=== PATIENT | male | born 1960 | race Two or more races ===

== ENCOUNTER → 2024-09-03 | Outpatient (CLI) | payer MEDICARE, SELFPAY ==
[2024-09-03 08:44] LABS: Alanine Aminotransferase 16 U/L (10-49); Albumin, Serum 4.3 gm/dL (3.4-4.8); Albumin/Globulin Ratio 1.5 (1.2-2.2); Alkaline Phosphatase 89 U/L (46-116); Anion Gap 10 (7-16); Aspartate Amino Transferase 19 U/L (0-34); BUN/Creatinine Ratio 18 Ratio (12-20); Bilirubin,Total 1.3 mg/dL (0.3-1.2); Blood Urea Nitrogen 14 mg/dL (9-23); Calcium 9.7 mg/dL (8.3-10.6); Calcium (Corrected) 9.7 mg/dL (8.5-10.1); Carbon Dioxide 29.3 mMol/L (20.0-31.0); Cardiac Risk Estimate 5.1 RATIO (4.0-6.7); Chloride 109 mMol/L (98-107); Cholesterol 164 mg/dL (132-200); Creatinine (Component) 0.8 mg/dL (0.6-1.3); Globulin 2.8 gm/dL (2.3-3.5); Glucose 107 mg/dL (74-106); HDL Cholesterol 32 mg/dL (40-60); LDL Cholesterol,Calculated 101 mg/dL (0-130); Osmolality,Calculated 294 (275-295); Potassium 4.1 mMol/L (3.4-5.1); Sodium 148 mMol/L (136-145); Thyroid Stimulating Hormone 1.42 uIU/mL (0.55-4.78); Total Protein 7.1 gm/dL (5.7-8.2); Triglycerides 154 mg/dL (30-150); eGFR > 60 See Note
[2024-09-03 08:51] LABS: T4 (Thyroxine) 8.4 mcg/dL (4.5-10.9)
[2024-09-06 06:48] LABS: T3,Total* 66 ng/dL (76-181)
== END | disposition home or self-care (01) ==
PROVIDERS: PCP Family Medicine; Referring Provider Family Medicine; Visit Provider Family Medicine
DX: E03.9 Hypothyroidism, unspecified (principal); I10 Essential (primary) hypertension
CPT/HCPCS: 36415; 80053; 80061; 84436; 84443; 84480

== ENCOUNTER → 2024-11-16 | Outpatient (CLI) | payer MEDICARE, MEDICAID, SELFPAY ==
[2024-11-16 09:58] LABS: Thyroid Stimulating Hormone 1.08 uIU/mL (0.55-4.78)
[2024-11-16 10:01] LABS: T4 (Thyroxine) 7.4 mcg/dL (4.5-10.9)
[2024-11-21 06:53] LABS: T3,Total* 69 ng/dL (76-181)
== END | disposition home or self-care (01) ==
LOC: COPL 08:10
PROVIDERS: PCP Family Medicine; Referring Provider Family Medicine; Visit Provider Family Medicine
DX: E03.9 Hypothyroidism, unspecified (principal)
CPT/HCPCS: 36415; 84436; 84443; 84480

== ENCOUNTER 2024-12-24 08:04 | Inpatient (IN) | payer MEDICARE, MEDICAID, SELFPAY ==
[2024-12-24] VITALS (8 sets, daily range): BP systolic 80–165; BP diastolic 50–108; PULSE 47–98; RESP 16–24; TEMP 36.8–37.2; O2SAT 94–100; BMI 49.5; BMI 47.9
--- NOTE | 2024-12-24 08:05 | PC.NURSE ---
Pt. here from home to room 1, pt. states he has chest pain to left upper chest /, pt. states the pain started at 0700 this morning, pt. states he was just in [facility] and admitted 2 days ago, pt. states he was also in [facility] 2 weeks ago. Pt. states he has A-fib, prostate CA and HTN. Pt. states he is receiving treatment for the prostate CA. Pt. is very pale, pt. lips are dry and pt. is very sleepy.
--- NOTE | 2024-12-24 08:10 | EKG_ITS ---
[facility] Test Date: 2024-12-24 Pat Name: SUSHILA COLE Department: Room: - Gender: Male Manager Secondary: : 1960 Requested By: Fabiana Mast Order Number: [id number] Reading MD: Fabiana Mast Measurements Intervals [place] Rate: 89 P: OR: QRS: 17 QRSD: 87 T: 21 QT: 384 QTc: 467 Interpretive Statements ATRIAL FIBRILLATION ABNORMAL RHYTHM ECG No previous ECG available for comparison /store/S0/[id number].pdf
--- NOTE | 2024-12-24 08:11 | EDNOTE_ITS ---
ED Chest Pain RME/HPI General Chief Complaint: Chest Pain Stated Complaint: bradycardia, weakness Time Seen by Provider: 12/24/24 08:09 Source: patient and EMS Arrival date/time: 12/24/24 08:04 Mode of arrival: EMS Limitations: no limitations and language barrier RME / HPI RME / HPI narrative: Patient is a 64-year-old male with medical history notable for hypothyroidism, A-fib, prostate cancer actively receiving chemotherapy that send Emergency Department with concerns for shortness of breath, chest pain and feeling very weak. Per the patient he has been at evaluated at outside hospitals over the last couple weeks for chest pain. This morning he called his son as well as 911 because he was also having a hard time breathing. When EMS arrived patient's he art rate was in the 40s blood pressure was systolic in the 80s. Patient slow to respond and very weak. Patient received 0.5 mg of atropine as well as 200 cc of fluid which resulted in patient's heart rate improving to the 80s and blood pressure systolic in the 100s. Patient denies any cough runny nose hemoptysis hematemesis melena hematochezia dysuria hematuria recent travel or sick contacts. No drugs no alcohol no smoking. No allergies to medications. Patient has never had a heart attack, does not know nothing with his residential real estate sales manager at this time. Related Data Home Medications ?Medication ?Instructions ?Recorded ?Confirmed Levothyroxine * (SYNTHROID *) 50 mcg PO QDAY PRN HYPOT HYROID #30 12/24/13 tabs Allergies Allergy/AdvReac Type Severity Reaction Status Date / Time No Known Allergies Allergy Mild NKA Uncoded 12/24/24 08:11 ED Exam General Limitations: Present no limitations and language barrier General appearance: Present alert and other (Weak, slow to respond, chronically ill-appearing with acute distress) Head Head exam: Present atraumatic and normocephalic Eye Eye exam: Present normal appearance, PERRL and EOMI; Absent scleral icterus ENT ENT exam: Present normal exam, normal oropharynx and mucous membranes dry Neck Neck exam: Present normal inspection and trachea midline Chest Chest inspection: Present normal inspection and symmetric chest wall rise Respiratory Respiratory exam: Present normal lung sounds bilaterally and respiratory distress; Absent wheezes or stridor Cardiovascular Cardiovascular exam: Present regular rate Abdominal Exam Abdominal exam: Present soft; Absent distention, tenderness, guarding, rebound or rigidity Extremities Exam Extremities exam: Present normal inspection; Absent tenderness Back Exam Back exam: Present normal inspection Neurological Exam Neurological exam: Present alert, oriented X3 and CN II-XII intact; Absent motor sensory deficit Psychiatric Psychiatric exam: Present normal affect Skin Skin exam: Present warm, dry and pallor Course Quality Measures none Orders Category Date Time Status Bedside Blood Glucose NOW Care 12/24/24 08:28 Active Bedside COVID-19 Antigen Test NOW Care 12/24/24 08:10 Active Bedside Influenza A&B Antigen Test NOW Care 12/24/24 08:[address] Screening NOW Care 12/24/24 08:[address] Screening NOW Care 12/24/24 08:25 Active Spring Fitter Helper Q4H START 00 Care 12/24/24 08:28 Active EKG (ED ONLY) *Do not use* NOW Care 12/24/24 08:10 Completed Insert IV NOW Care 12/24/24 08:28 Active Occult Blood,Stool (Nursing) NOW Care 12/24/24 09:50 Active Strict Intake and Output Routine Care 12/24/24 08:28 Ordered Consult to Gastroenterology Stat Cons 12/24/24 10:[address] angio chest abdomen pelvis Stat Exams 12/24/24 08:[address] head/brain wo con Stat Exams 12/24/24 08:22 Completed EKG (ED Only) Stat Exams 12/24/24 08:10 Draft XR chest 1V SEPSIS PROTOCOL Stat Exams 12/24/24 08:28 Completed Acetaminophen Stat Lab 12/24/24 08:30 Completed Ammonia Stat Lab 12/24/24 08:30 Completed BNP [B-Type Natriuretic Peptide] Stat Lab 12/24/24 08:13 Completed Bilirubin,Direct Stat Lab 12/24/24 08:30 Completed Blood Culture (Lab) Stat Lab 12/24/24 09:38 Received CBC Stat Lab 12/24/24 08:13 Completed CMP [Comprehensive Metabolic Panel] Stat Lab 12/24/24 08:13 Completed Lactate (Lactic Acid) Stat Lab 12/24/24 08:30 Completed Partial Thromboplastin Time Stat Lab 12/24/24 08:13 Completed Procalcitonin Stat Lab 12/24/24 08:30 Completed Prothrombin Time with INR Stat Lab 12/24/24 08:13 Completed Salicylate Stat Lab 12/24/24 08:30 Completed T4 (Thyroxine) Stat Lab 12/24/24 08:30 Completed TSH [Thyroid Stimulating Hormone] Stat Lab 12/24/24 08:30 Completed Troponin I Stat Lab 12/24/24 08:13 Completed Type and Screen Stat Lab 12/24/24 08:30 Completed UA, C/S IF [Urinalysis, C/S if Indicated] Stat Lab 12/24/24 08:10 Ordered VBG [Venous Blood Gas] Stat Lab 12/24/24 08:30 Completed Azithromycin Inj [Zithromax Inj] 500 mg Med 12/24/24 08:28 Discontinued Sodium Chloride 0.9% 250 ml [Ns] 250 ml IV STAT Norepinephrine/D5W 8mg/250ml [Levophed in D5W 8mg/250ml Med 12/24/24 08:23 Active ] 8 mg in 250 ml IV 0.05 mcg/kg/min Pantoprazole Inj [Protonix Inj] Med 12/24/24 10:38 Discontinued 80 mg IVP X1 ONE Pantoprazole/Ns 80Mg IV Premix [Protonix/NS 80mg IV Med 12/24/24 10:39 Active Premix] 80 mg in 100 ml IV X1 Pantoprazole/Ns 80Mg IV Premix [Protonix/NS 80mg IV Med 12/24/24 10:39 Discontinued Premix] 80 mg in 100 ml IV X1 Ringers Lactated 1000 ml [Lactated Ringers] 1,000 ml Med 12/24/24 08:34 Discontinued IV 999 mls/hr Ringers Lactated 500 ml [Lactated Ringers] 500 ml Med 12/24/24 08:23 Discontinued IV 500 mls/hr cefTRIAXone/D5w 1gm IV premix [Rocephin/D5w 1gm IV Med 12/24/24 08:28 Discontinued premix] 1 gm in 50 ml IV STAT Oxygen Delivery NOW RT 12/24/24 08:28 Active Vital Signs Vital signs: Vital Signs Temperature 98.2 F 12/24/24 08:05 Pulse Rate 64 12/24/24 08:05 Respiratory Rate 16 12/24/24 08:05 Blood Pressure 97/50 L 12/24/24 08:05 Pulse Oximetry (%) 97 12/24/24 08:05 Oxygen Delivery Method Oxy Mask 12/24/24 08:05 Oxygen Flow Rate 12 12/24/24 08:05 Chest Pain MDM Narrative MDM Narrative:: Patient is a 64-year-old male is in the emergency department with concerns for weakness, chest pain shortness of breath and hypotension. Vital signs and exam as listed. Concern for pulmonary embolus, ACS, arrhythmia, metabolic derangement, among others. Patient was placed in resuscitation room, IV access obtained, placed on the cardiac specialist. Pacer pads placed. Patient heart rate is in the 60s, systolic blood pressure greater than 100 at this time. Ordered labs EKG chest x-ray as well as CT angio of the chest. Given patient's history of A-fib patient may be on beta-blockers at home, at this time patient does not know his medications however he does state that he took his home medications this morning. Patient may be septic and if he took his beta-christian which may be the reason why he is not tachycardic despite being hypotensive. Ordered sepsis order set, and judicious fluid resuscitation. Per the patient's son his medications include metoprolol, Eliquis, Synthroid. Reviewed patient's outside records, he was recently hospitalized at for similar presentation. His symptoms have been present on and off for the last 3 weeks. Unclear he had an echocardiogram that showed an ejection fraction of 73%. Had a nuclear medicine stress test that did not show any acute abnormalities. Had a CT angio of the chest that showed pneumonia but no PE at the time. Cocci studies were negative. Patient was evaluated by residential real estate sales manager Dr. Russell. Diagnosed with atrial fibrillation started on metoprolol and Eliquis. Patient is pending an appointment to be seen by him in clinic in the upcoming week. At 1 point patient was evaluated in [place] and was told that he might need a cardiac device. 9:38a Following a liter of fluid resuscitation, patient responding questions quicker, appears better, continues to have the dusky skin color, and is weak however denies any chest pain or abdominal pain at this time. Continues to be hypoxic requiring supplemental oxygen. Labs without leukocytosis and no left shift. Patient hemoglobin is 9.5, per review of outside records his hemoglobin there was 11.7 upon discharge on 20 December. Given patient is on Eliquis, and appears pale and was hypotensive concern that patient may have a bleed. Will perform occult blood testing. pH 7.4, pCO2 46. No acute electrolyte abnormalities. Lactic acid normal. LFTs normal. INR normal. PT 12.4 seconds. Troponin not elevated. Procalcitonin not elevated. Ammonia level salicylate and Tylenol level normal. CT brain unremarkable. CT chest abdomen pelvis with mild aneurysmal dilatation of the ascending aorta at 4.5 cm no dissection. No evidence of pulmonary emboli. Patient has atelectasis versus pneumonia at the lung bases. Concern for liver disease as well. Patient also with bladder wall thickening. Urinalysis however does not show any evidence of urinary tract infection. I did perform a Hemoccult test at bedside was positive for blood. Consulted Dr. Hutton, requests patient be NPO. Will evaluate patient. concern the patient is having a GI bleed. I ordered Protonix bolus and drip. Patient without any history of alcohol use do not suspect esophageal varices at this time. I discussed with patient's residential real estate sales manager Dr Russell, in agreement with treatment plan. Discussed case with hospitalist service, kindly accepted patient for admission. Updated patient and his son, both in agreement with treatment plan. Patient data External records reviewed:: [facility] previous records and EMS form Clinical information provided by:: patient, EMS and family Social determinants that could affect healthcare access:: none (Language, fitness consultant used) Patient has the following chronic illnesses:: See MDM How is presenting disease/condition affected by chronic disease/condition?: exacerbated by Evaluation data The following diagnostics were reviewed and interpreted by me:: lab results, radiology exam(s) and EKG tracing(s) Lab and/or radiology exams considered but not ordered:: None Interpretation Summary: see mdm Medications / Prescriptions Medications or Prescriptions considered but not ordered:: None Medication administrations:: Medication Administration History Norepinephrine/Dextrose (Levophed In D5w 8mg/250ml) 8 mg in 250 mls @ 11.156 mls/hr IV .[id number] PRN; Protocol PRN Reason: PER PROTOCOL Stop: 01/23/25 08:22 Pantoprazole Sodium (Protonix/Ns 80mg Iv Premix) 80 mg in 100 mls @ 10 mls/hr IV X1 ONE Stop: 12/24/24 20:38 Discontinued Medications Lactated Ringer's (Lactated Ringers) 500 mls @ 500 mls/hr IV .Q1H ONE Stop: 12/24/24 09:22 Last Admin: 12/24/24 09:09 Dose: Not Given Documented By: ED Non-Admin Reason: Cancelled by Provider Ceftriaxone Sodium/Dextrose (Rocephin/D5w 1gm Iv Premix) 1 gm in 50 mls @ 100 mls/hr IV STAT STA Stop: 12/24/24 08:57 Last Infusion: 12/24/24 09:42 Dose: Infused Documented By: Admin: 12/24/24 09:12 Dose: 100 mls/hr Documented By: ED Azithromycin 500 mg/ Sodium (Chloride) 250 mls @ 250 mls/hr IV STAT STA Stop: 12/24/24 09:27 Lactated Ringer's (Lactated Ringers) 1,000 mls @ 999 mls/hr IV .Q1H1M ONE Stop: 12/24/24 09:34 Last Admin: 12/24/24 09:04 Dose: 999 mls/hr Documented By: ED Pantoprazole Sodium (Protonix/Ns 80mg Iv Premix) 80 mg in 100 mls @ 400 mls/hr IV X1 ONE Stop: 12/24/24 10:53 Pantoprazole Sodium (Pantoprazole Inj 40 Mg Vial) 80 mg IVP X1 ONE Stop: 12/24/24 10:39 See above Consultations Consultation(s) initiated? (list below): Yes Consultation #1 (Physician, Specialty, Details): See MDM Diagnosis Chest Pain Differential Diagnosis: other Most likely diagnosis given after review of the tests above:: GI bleed Admission Indicated Admission indicated?: indicated Admission Request Was there a request for admission?: Yes Admission Attestation Admission request attestation: Discussed case with Hospitalist service regarding admission. Discussed patients ED course, exam findings, labs, and radiology results. The Hospitalist [agrees,declines] to accept the patient for admission. Disposition Plan Disposition Plan: Admit Critical Care Time Critical Care Time Critical Care Time: Yes Total Critical Care Time (min.): 45 Attestation: ?I spent 45 minutes of critical care time with this patient not including reportable procedures. There was an acute impairment of an organ system with a high probability of imminent or life threatening deterioration in the patient's condition. Interventions and changes required in the course of therapy are located in the chart. Time involved was spent in direct patient care, reviewing ancillary data, old records, consulting with decision makers, EMS, other doctors, giving orders and documenting. Discharge Plan Plan Patient Disposition: Admit Acute Care w/in Hospital Prescriptions/Referrals Prescriptions/Med Rec: No Action Levothyroxine * (SYNTHROID *) 50 MCG tablet 50 mcg PO QDAY PRN (Reason: HYPOTHYROID) Qty: 30 Referrals: Alexsander Echavarria MD [Primary Care Provider, Family Practice] - In 1 week Problem List Clinical Impression: GI (gastrointestinal bleed), Acute hypotension, Bradycardia, Atrial fibrillation, Aortic aneurysm Patient/Caregiver Discharge Instructions Print Language: [place] Stand Alone Forms: [facility] Award Info., Patient Portal Info Letter
[2024-12-24 08:21] LABS: Basophils # (Auto) 0.0 Thou/mm3 (0.0-0.2); Basophils % (Auto) 0 % (0-2.5); Eosinophils # (Auto) 0.2 Thou/mm3 (0.0-0.5); Eosinophils % (Auto) 3 % (0-10); Hematocrit 28.8 % (41.0-53.0); Hemoglobin 9.5 g/dL (13.5-16.0); Immature Granulocytes Auto 0.02 Thou/mm3 (0.00-0.00); Lymphocytes # (Auto) 1.0 Thou/mm3 (1.0-4.8); Lymphocytes % (Auto) 20 % (10-50); Mean Corpuscular HGB Conc 33.0 g/dl (31.0-37.0); Mean Corpuscular Hemoglobin 29.7 pg (25.0-35.0); Mean Corpuscular Volume 90 fL (80-100); Monocytes # (Auto) 0.4 Thou/mm3 (0.0-0.8); Monocytes % (Auto) 8 % (0-12); Neutrophils # (Auto) 3.5 Thou/mm3 (1.8-7.7); Neutrophils % (Auto) 69 % (37-80); Nucleated Red Blood Cell # 0.00 Thou/mm3 (0.00-0.00); Nucleated Red Blood Cell % 0 /100 WBC (0); Platelet Count 385 Thou/mm3 (140-440); RDW Standard Deviation 43.4 fL (35.1-43.9); Red Blood Count 3.20 Miln/mm3 (4.50-5.90); White Blood Count 5.0 Thou/mm3 (3.8-10.6)
--- NOTE | 2024-12-24 08:22 | XR_ITS ---
Examination: CT brain head without contrast. 2-D sagittal coronal reconstructions Date and time of exam:December 24, 2024 0841 hours, comparison August 19, 2009 INDICATIONS: Onset altered mental status today CTDI: vol (mGy):60.2 DLP: (mGycm):1282 Technique: Multiple CT axial sections of the brain have been obtained, 5 mm slice thickness. Contrast has not been administered. 2-D sagittal, coronal reconstructions have been obtained Low dose protocols were performed. One or more of the following dose reduction techniques were used; automated exposure control, adjustment of the mA and/or KV according to patient size, use of iterative reconstruction technique. Findings: No significant ventricular enlargement. Intra-axial or extra-axial hemorrhage density is not seen. No mass effect or midline shift Basal cisterns are not remarkable. Fourth ventricle is midline. Cranial vault intact. Significant chronic ethmoid sinusitis Impression: Negative for acute hemorrhage, mass effect or midline shift Advise clinical correlation follow-up accordingly
--- NOTE | 2024-12-24 08:24 | XR_ITS ---
Examination: CTA chest, with intravenous contrast. CTA abdomen, with intravenous contrast. CTA pelvis, with intravenous contrast. 2-D sagittal and coronal reconstructions. 3-D reconstructions. Date and time of exam: December 24, 2024, 0845 hours INDICATIONS: Onset chest and abdominal pain today CTDI vol (mgy) 31.3 DLP (MGycm) 1328 Technique: Multiple CTA images, 2.0 mm slice thickness, obtained chest, abdomen, pelvis, with the high-resolution 64 slice scanner. 100 cc Isovue-370 is administered intravenously. Sagittal and coronal 2-D reconstructions are obtained. 3-D reconstructions, angiographic images are obtained. 3-D postprocessing, including vascular maximum intensity projections. Low dose protocols were performed. One or more of the following dose reduction techniques were used; automated exposure control, adjustment of the mA and/or KV according to patient size, use of iterative reconstruction technique. Findings: Aneurysmal dilatation ascending thoracic aorta, AP dimension 4.5 cm No thoracic aortic dissection Main pulmonary artery segment 30 mm No pulmonary artery filling defects Mild enlargement cardiac contour Minimal right hilar adenopathy Atelectasis versus early pneumonia at the lung bases Liver is mildly irregular in contour, no focal liver lesions No gallstones Spleen is not enlarged No pancreatic or adrenal mass No renal or ureteral calculi, small benign left renal cyst Abdominal aortic calcification no aneurysmal dilatation or dissection Normal appendix Moderate stool in the colon Tiny fat-containing umbilical hernia No diverticulitis Normal seminal vesicles Transverse prostate dimension 3.8 cm Contracted urinary bladder with urinary bladder wall thickening up to 7 mm Prominent osteopenia IMPRESSION: Mild aneurysmal dilatation ascending thoracic aorta, AP dimension 4.5 cm, no dissection Negative for pulmonary artery emboli. Atelectasis versus mild pneumonia at the lung bases. Suspect primary hepatocellular disease. Normal appendix. No abdominal aortic aneurysm dilatation or dissection. Urinary bladder wall thickening up to 7 mm, differential would include cystitis
--- NOTE | 2024-12-24 08:28 | XR_ITS ---
Examination: AP chest single view TECHNIQUE: Portable AP sitting chest single view Date and time: December 24, 2024 0904 hours, comparison 12/23/2013 INDICATIONS: Sepsis protocol. FINDINGS: Accentuation basilar bronchovascular markings. No lobar pneumonia. Normal heart size IMPRESSION: Basilar bronchitis pattern
[2024-12-24 08:38] LABS: Base Excess, Venous 4 (-3-3); O2 Saturation, Venous 68 % (96-97); PCO2, Venous 46 mmHg (36-56); PO2, Venous 36 mmHg (15-58); pH, Venous 7.41 (7.33-7.66)
[2024-12-24 08:39] LABS: Lactate (Lactic Acid) 1.9 mMol/L (0.4-2.0)
[2024-12-24 08:42] LABS: B-Type Natriuretic Peptide 99 pg/mL (0-100)
[2024-12-24 08:43] LABS: Alanine Aminotransferase 15 U/L (10-49); Albumin, Serum 3.8 gm/dL (3.4-4.8); Albumin/Globulin Ratio 1.2 (1.2-2.2); Alkaline Phosphatase 84 U/L (46-116); Anion Gap 8 (7-16); Aspartate Amino Transferase 23 U/L (0-34); BUN/Creatinine Ratio 13 Ratio (12-20); Bilirubin,Total 0.7 mg/dL (0.3-1.2); Blood Urea Nitrogen 10 mg/dL (9-23); Calcium 10.0 mg/dL (8.3-10.6); Calcium (Corrected) 10.2 mg/dL (8.5-10.1); Carbon Dioxide 28.5 mMol/L (20.0-31.0); Chloride 107 mMol/L (98-107); Creatinine (Component) 0.8 mg/dL (0.6-1.3); Estimated Creatinine Clearance 103.2 mL/min (>60); Globulin 3.1 gm/dL (2.3-3.5); Glucose 111 mg/dL (74-106); Osmolality,Calculated 284 (275-295); Potassium 3.8 mMol/L (3.4-5.1); Sodium 143 mMol/L (136-145); Total Protein 6.9 gm/dL (5.7-8.2); Troponin I < 0.002 ng/mL (0.0-0.045); eGFR > 60 See Note
[2024-12-24 08:50] LABS: INR 1.1 (0.9-1.3); Partial Thromboplastin Time 26.3 Seconds (22.0-36.0); Prothrombin Time 12.4 Seconds (9.0-12.2)
[2024-12-24 08:59] LABS: Ammonia 23 uMol/L (11-32)
[2024-12-24 09:02] LABS: T4 (Thyroxine) 9.9 mcg/dL (4.5-10.9)
[2024-12-24] MEDS: RINGERS LACTATED 1000 ML 1,000 ML 999 ML IV (09:04)
[2024-12-24 09:11] LABS: Acetaminophen < 2.0 mcg/mL (10.0-20.0); Bilirubin,Direct 0.2 mg/dL (0.0-0.3); Procalcitonin 0.06 ng/ml (0.0-0.49); Salicylate < 3.0 mg/dL; Thyroid Stimulating Hormone 0.52 uIU/mL (0.55-4.78)
[2024-12-24] MEDS: cefTRIAXone/D5w 1gm IV premix 1 GM/50 ML BAG IV (09:12)
--- NOTE | 2024-12-24 09:20 | PC.NURSE ---
Dr. Luong is bedside talking with son and pt., pt. states he was in [place] a month ago, son states pt. fainted in [place] and was taken to the Doctor there. Per son pt. was told in [place] he needed a pace maker, son states that they flew pt. to [place] to [facility] for a pacemaker. Son states per [facility] pt. had Afib and PNA and didn't need a pacemaker.
--- NOTE | 2024-12-24 09:27 | PC.NURSE ---
Son states pt. was just started on blood thinners at [facility].
--- NOTE | 2024-12-24 09:58 | PC.NURSE ---
Dr. Luong is bedside, tested pt. for occult blood, pt. tolerated well. Dr. Luong states pt. is positive.
[2024-12-24 11:06] LABS: Collection Type, Urine Clean Catch; Squamous Epithelial Cell,Urine 0 /hpf (0-5)
[2024-12-24] MEDS: PANTOPRAZOLE/NS 80MG IV PREMIX 80 MG/100 ML BAG 400 MG IV (11:17)
[2024-12-24 11:24] LABS: Bacteria,Urine Rare; Bilirubin,Urine Negative (Negative); Blood,Urine Negative (Negative); Clarity,Urine Clear (Clear/Hazy); Color,Urine Colorless (Lt Yel-Yel); Culture Indicated,Urine Not Indicated; Glucose, Urine Negative (Negative); Ketones,Urine Negative (Negative); Leukocyte Esterase,Urine Negative (Negative); Nitrite,Urine Negative (Negative); PH,Urine 7.5 (5.0-7.0); Protein,Urine Negative (Neg - Trace); RBC,Urine 2 /hpf (0-3); Specific Gravity,Urine 1.032 (1.001-1.035); Urobilinogen,Urine Negative mg/dL (0.0-1.0); WBC,Urine 1 /hpf (0-5)
[2024-12-24] MEDS: PANTOPRAZOLE/NS 80MG IV PREMIX 80 MG/100 ML BAG 10 MG IV (11:35)
--- NOTE | 2024-12-24 15:52 | PD.RESHP ---
Documentation for date of: 12/24/24 [facility] History of Present Illness Chief complaint: Chest pain & SOB History of present illness: This patient is a 64-year-old Afghan speaking male with a past medical history of hypothyroidism, hypertension, A-fib, and prostate cancer on chemotherapy, who presents to [facility] ED on 12/24 for concerns of shortness of breath with chest pain and generalized weakness. The patient was admitted for management of GI bleed. The patient stated that earlier this morning, he had sudden onset chest pain and felt generalized weakness, resulting in the patient almost collapsing without loss of consciousness. The patient stated that these episodes started when the patient went to [place] about a month ago. In [place], the patient was noted to become very pale and weak very suddenly. According to the patient's family, the patient went to see a chief of staff doctor in [place], who recommended placement of a pacemaker at the time. However, due to lack of insurance in [place], the patient opted to pursue further evaluation in the . The patient was evaluated by his chief of staff doctor, Dr. Russell, who did not believe that the patient needed a pacemaker at the time. The patient had an echocardiogram done recently that showed ejection fraction of 73% as well as a nuclear medicine stress test that did not show any acute abnormalities. Additionally, CTA of the chest was negative for PE at the time. The patient was however diagnosed with atrial fibrillation and started on metoprolol and Eliquis by his chief of staff doctor. However, the patient continued to have these episodes of weakness with becoming pale and seemingly almost collapsing. In addition, these episodes would become worse as the patient noted that he started to have chest pain and shortness of breath about 3 weeks ago. These episodes would come and go, and the chest pain was noted to be a sharp stabbing sensation in the center of his chest that does not radiate and does not change on palpation of the chest. On 12/20, the patient had another one of these episodes, and sought help at [facility]. The patient and his family member at bedside stated that the only recommendations on discharge from the ED there was to be more consistent with taking his Eliquis. At 12/24, the patient had another one of these episodes, and is brought to [facility] ED. In the ED, the patient was noted to have a heart rate in the 60s with a soft blood pressure of 97/50 and requiring 12 L O2 via oxime mask to maintain O2 saturation 97%. The patient was noted to have dusky skin color in the ED, but it was noted that the patient seemed to have improvement in his status following a liter of fluid resuscitation. Given the patient's low blood pressure, hypoxemia, pale appearance, recent Eliquis use, and overall unremarkable labs with the exception of a hemoglobin of 9.5, which was 11.7 on 12/20 per outside records, ED considered a possible GI bleed as the cause for the patient's symptoms. FOBT was noted to be positive for blood, and so ED consulted GI, and the patient was admitted for management of a GI bleed. Patient denies any fevers, chills, cough, abdominal pain, dysuria, pyuria. Patient does endorse constipation. ED course: Initial vitals significant for blood pressure 97/50, O2 sat 97% on 12 L oxy mask. Initial labs significant for hemoglobin 9.5 and corrected calcium 10.2. Troponin unremarkable at less than 0.002 and lactic acid unremarkable at 1.9. Blood cultures collected x 2. CT head negative for acute processes, CTA chest/abdomen/pelvis showed mild aneurysmal dilation of the ascending thoracic aorta measuring 4.5 cm without dissection and negative for pulmonary emboli with possible atelectasis versus mild pneumonia at lung bases. Also shows thickened urinary bladder. Chest x-ray ordered showed basilar bronchitis pattern. Patient received 1 L of LR, which improved patient presentation. FOBT positive for blood, GI consulted. Gave patient 1 g of ceftriaxone and pantoprazole 80 mg followed by pantoprazole drip. Current Medication(s): - Abiraterone 250 mg four times daily - Tamsulosin 0.4 mg daily - Levothyroxine 125? mcg daily - Lisinopril 10 mg daily - Liothyronine 25 mcg daily - Metoprolol succinate 50 mg daily - Mirtazapine 15 mg daily - Eliquis 5 mg twice daily Allergies (w/ Reactions): NKDA Family History: Noncontributory Alcohol Intake: Patient states that he drank a bottle of alcohol a day, but could not specify how many years other than a lot, no longer drinks alcohol Tobacco/Vape Use: Patient states that he smoked a pack of cigarettes each day, but could not specify for how long other than for many years, no longer smokes/vapes Other Drug Use: Patient denies Recent Travel History: [place] 1 month ago Review of Systems Review of Systems Systems Reviewed: All systems reviewed, normal except as documented Exam Vital Signs Temp Pulse Resp BP Pulse Ox O2 Del Method O2 Flow Rate 98.7 F 79 24 H 150/92 H 96 Room Air 7 12/24/24 15:12/24/24 15:12/24/24 15:12/24/24 15:12/24/24 15:12/24/24 15:12/24/24 09:20 Narrative Exam Physical Exam: General: Alert, no acute distress. Skin: Warm, dry, intact. Head: Normocephalic, atraumatic. Eye: Slightly injected conjunctiva, PERRL. Throat: Oral mucosa moist. No obvious lesions in oropharynx. Cardiovascular: Regular rate and irregular rhythm, no murmur, +S1/S2. Respiratory: Lungs are clear to auscultation, respirations unlabored, no crackles, no wheezing. Gastrointestinal: Soft, nontender, non-distended. No guarding or rebound tenderness. Extremities: No edema, no cyanosis, no clubbing. 2+ radial pulse bilaterally, 2+ pedal pulse bilaterally. Neuro: No focal deficits observed. Conversant, moving all extremities. No overt cerebellar signs/incoordination. Psychiatric: Cooperative, appropriate affect. Results: Labs 12/24/24 08:13 12/24/24 08:13 Labs: Short CBC 12/24/24 Range/Units 08:13 WBC 5.0 (3.8-10.6) Thou/mm3 Hgb 9.5 L (13.5-16.0) g/dL Hct 28.8 L (41.0-53.0) % Plt Count 385 (140-440) Thou/mm3 BMP 12/24/24 08:13 Sodium 143 Potassium 3.8 Chloride 107 Carbon Dioxide 28.5 BUN 10 Creatinine 0.8 Glucose 111 H Calcium 10.0 Cardiac Enzymes 12/24/24 Range/Units 08:13 Troponin I < 0.002 (0.0-0.045) ng/mL Liver Function 12/24/24 12/24/24 Range/Units 08:13 08:30 Total Bilirubin 0.7 (0.3-1.2) mg/dL Direct Bilirubin 0.2 (0.0-0.3) mg/dL AST 23 (0-34) U/L ALT 15 (10-49) U/L Alkaline Phosphatase 84 (46-116) U/L Albumin 3.8 (3.4-4.8) gm/dL Urine 12/24/24 Range/Units 10:58 Urine Color Colorless A (Lt Yel-Yel) Urine Clarity Clear (Clear/Hazy) Urine pH 7.5 H (5.0-7.0) Ur Specific [place] 1.032 (1.001-1.035) Urine Protein Negative (Neg - Trace) Urine Glucose (UA) Negative (Negative) ABG Interpretation ABG results: 12/24/24 08:30 VBG pH 7.41 VBG pCO2 46 VBG pO2 36 VBG Base Excess 4 H Quality Measures Quality Measures none Advance care planning discussed with:: patient and child Medications Home Medications and Allergies Home Medications ?Medication ?Instructions ?Recorded ?Confirmed ?Type Levothyroxine * (SYNTHROID *) 50 mcg PO QDAY PRN HYPOTHYROID #30 12/24/13 History tabs Allergies Allergy/AdvReac Type Severity Reaction Status Date / Time No Known Allergies Allergy Unverified 12/24/24 15:18 Visit Medications Norepinephrine/Dextrose (Levophed In D5w 8mg/250ml) 8 mg in 250 mls @ 11.156 mls/hr IV .[id number] PRN; Protocol PRN Reason: PER PROTOCOL Stop: 01/23/25 08:22 Lactated Ringer's (Lactated Ringers) 1,000 mls @ 60 mls/hr IV .[id number] ONE Stop: 12/25/24 07:54 Ceftriaxone Sodium/Dextrose (Rocephin/D5w 1gm Iv Premix) 1 gm in 50 mls @ 100 mls/hr IV QDAY JALEN Stop: 01/01/25 08:59 Ondansetron HCl (Ondansetron Inj 2 Mg/Ml Inj 2 Ml) 4 mg IVP Q6H PRN; Protocol PRN Reason: NAUSEA OR VOMITING Stop: 01/23/25 13:10 Pantoprazole Sodium (Pantoprazole Inj 40 Mg Vial) 40 mg IVP QDAY JALEN Stop: 01/24/25 08:59 Discontinued Medications Lactated Ringer's (Lactated Ringers) 500 mls @ 500 mls/hr IV .Q1H ONE Stop: 12/24/24 09:22 Last Admin: 12/24/24 09:09 Dose: Not Given Ceftriaxone Sodium/Dextrose (Rocephin/D5w 1gm Iv Premix) 1 gm in 50 mls @ 100 mls/hr IV STAT STA Stop: 12/24/24 08:57 Last Infusion: 12/24/24 09:42 Dose: Infused Azithromycin 500 mg/ Sodium (Chloride) 250 mls @ 250 mls/hr IV STAT STA Stop: 12/24/24 09:27 Lactated Ringer's (Lactated Ringers) 1,000 mls @ 999 mls/hr IV .Q1H1M ONE Stop: 12/24/24 09:34 Last Infusion: 12/24/24 10:05 Dose: Infused Pantoprazole Sodium (Protonix/Ns 80mg Iv Premix) 80 mg in 100 mls @ 400 mls/hr IV X1 ONE Stop: 12/24/24 10:53 Last Infusion: 12/24/24 11:32 Dose: Infused Pantoprazole Sodium (Protonix/Ns 80mg Iv Premix) 80 mg in 100 mls @ 10 mls/hr IV X1 ONE Stop: 12/24/24 20:38 Last Admin: 12/24/24 11:35 Dose: 10 mls/hr Pantoprazole Sodium (Pantoprazole Inj 40 Mg Vial) 80 mg IVP X1 ONE Stop: 12/24/24 10:39 Last Admin: 12/24/24 11:16 Dose: 80 mg Assessment & Plan Plan This patient is a 64-year-old Afghan speaking male with a past medical history of hypothyroidism, hypertension, A-fib, and prostate cancer on chemotherapy, who presents to [facility] ED on 12/24 for concerns of shortness of breath with chest pain and generalized weakness. The patient was admitted for management of GI bleed. #GI bleed, upper vs lower #FOBT positive Patient noted to have presented with paleness, soft BP, and hemoglobin of 9.5, which is decreased from 11.7 on 12/20 per outside records. Patient seemed to improve with IV fluid hydration. Given presentation and active Eliquis use, patient does have a possible GI bleed. FOBT positive for blood. HAS-BLED score 2; Risk was 4.1% in one validation study (Lip 2011) and 1.88 bleeds per 100 patient-years in another validation study (Pisangel 2010). GBS score 8; A GBS greater than zero suggests a ?High Risk? GI bleed that is likely to require ?medical intervention?: transfusion, endoscopy, or surgery. A higher GBS also correlated with a higher likelihood of needing intervention (scores >= are associated with >50% risk of needing intervention) Plan: GI consulted, appreciate recommendations Patient made n.p.o. 1 L LR 12/24 Pantoprazole 40 mg daily Hold home Eliquis 5 mg twice daily given possible GI bleed Ceftriaxone 1 gm daily (12/24--) #Atrial fibriliation #Pre-syncope #Chest pain, atypical #Aortic aneurysm, ascending aorta, 4.5 cm diameter Patient noted to have a history of atrial fibrillation. It is unclear when this first started, however the patient was recently diagnosed within the last month. Patient does follow Dr. Russell for outpatient management, and does take Eliquis and metoprolol at home. Previous echocardiogram showed ejection fraction 73%, nuclear medicine stress test negative. Patient is also noted to have these episodes of what seem to be presyncope where the patient will randomly have episodes of becoming pale, slightly confused, chest pain, shortness of breath, and noted to have some generalized weakness. Diagnostics: CTA chest/abdomen/pelvis showed mild aneurysmal dilation of ascending thoracic aorta that measures 4.5 cm in diameter Plan: Hold home Eliquis 5 mg twice daily given possible GI bleed Hold home metoprolol succinate 50 mg daily Orthostatic vitals ordered, pending Patient to follow-up with outpatient cardiology Blood cultures collected 12/24, pending Lipid panel ordered, pending #Prostate cancer, on chemotherapy Patient does have a history of prostate cancer. Unspecified when exactly the patient was diagnosed, but that the patient does follow Dr. Olea at [facility] for management. Patient takes abiraterone at home as chemotherapy, which has been noted to cause arrhythmias and chest pain, although it is a relatively uncommon side effect. Plan: Will hold for now, patient will follow-up with outpatient oncology to resume #Primary hypertension Patient has a history of primary hypertension and takes lisinopril 10 mg daily and metoprolol succinate 50 mg daily at home. Plan: Hold antihypertensives for now, will reassess tomorrow given low BP on presentation #Hypothyroidism Patient noted to have a history of hypothyroidism. Patient takes levothyroxine and levothyroxine at home. On admission, TSH 0.52 and free T4 1.52 Plan: Pending med rec DVT Prophylaxis: SCDs GI Prophylaxis: Protonix Bowel: N/A Diet: NPO Rios: N/A Lines: Peripheral IV Antibiotics: Ceftriaxone (12/24--) Code Status: FULL Reason for Hospitalization: GI bleed Other Barriers to Discharge: GI consult Patient plan of care was discussed with attending physician Dr. Jamir Chan, PGY1 Attending Provider Attestation/Addendum I have examined the patient, reviewed labs and imaging findings, discussed the case with the resident(s), and reviewed entered orders. I agree with the plan of care as outlined in this note, with these additional summaries/recommendations: After examination of the patient and review of the clinical data, I feel that this patient needs admission to the hospital for further treatment and evaluation. Patient is a 64-year-old male with a medical history of prostate cancer on chemotherapy with LUTS, chronic atrial fibrillation on Eliquis, hypothyroidism, primary hypertension, and dyslipidemia presents to [facility] emergency department on 12/24/2024 with complaints of shortness of breath, chest pain, generalized weakness, and low blood pressure. Patient seen at bedside. He is currently hemodynamically stable and hypotension has resolved for now. He is answering questions appropriately. Patient diagnosed with GI bleed. Most likely upper as fecal occult blood test positive and patient denies hematemesis. Unknown unit of blood loss although ER provider reports patient's hemoglobin was previously 12 at [facility] and now down to 9.5. Gastroenterology consulted, recommendations appreciated. Start PPI, hold chemical anticoagulation, IVF, and NPO. Transfuse for hemoglobin less than 7, platelets less than 50,000, or INR greater than 1.5. Patient also suspected of having bacterial pneumonia secondary to gram-negative rods +/- anaerobes. Start IV antibiotic and monitor for improvement. Patient has chronic underlying atrial fibrillation although currently rate controlled. Monitor on telemetry and will resume home metoprolol succinate 50 mg extended release p.o. daily once tolerating oral intake. Hold home Eliquis. Patient was noted to have dilation of the ascending thoracic aorta which is 4.5 cm. Follow-up outpatient with vascular surgery. Patient has thickened urinary bladder which may be related to previous UTI versus prostate/bladder cancer. Continue to follow urology and oncology. Patient updated on the plan and in agreement. All questions answered to satisfaction. Please see residents note for additional details and management. Dr. Jamir MD
[2024-12-24] MEDS: RINGERS LACTATED 1000 ML 1,000 ML 60 ML IV (16:27)
[2024-12-24 16:39] LABS: Free T4 (Free Thyroxine) 1.52 ng/dL (0.89-1.76)
--- NOTE | 2024-12-24 17:16 | PC.NURSE ---
called Dr. Gumaro Leija, he stated to keep pt. on protonix drip.
--- NOTE | 2024-12-24 18:56 | PD.IMCONS ---
HPI Data of Consult Requesting Physician: Moraima Hutton MD Primary Care Provider: Alexsander Echavarria MD Consult Narrative Reason for consult: Melena FOBT positive nausea vomiting History of present illness: 64 years old male evaluated request of the ER physician for a history of melanotic stools as well as FOBT positive and low hemoglobin hematocrit Patient was found to be FOBT positive and melanotic stool on rectal examination in the ER Patient presented to the ER with shortness of breath chest pain and weakness was found to have a heart rate in the 40s as well as blood pressure in the 80s systolic Patient was given IV fluids as well as atropine and blood pressure stabilized Patient has a history of prostate carcinoma undergoing chemotherapy atrial fibrillation hypothyroidism cc:: cc: Moraima Hutton MD Review of Systems Review of Systems Systems Reviewed: All systems reviewed, normal except as documented Past Medical History Surgical History OTHER SURGICAL HX: As in the history of present illness Meds Home Medications and Allergies Home Medications ?Medication ?Instructions ?Recorded ?Confirmed ?Type Levothyroxine * (SYNTHROID *) 50 mcg PO QDAY PRN HYPOTHYROID #30 12/24/13 12/24/24 History tabs abiraterone 250 mg tablet 250 mg PO QDAY 12/24/24 12/24/24 History apixaban 5 mg tablet (Eliquis) 5 mg PO BID 12/24/24 12/24/24 History ibuprofen 400 mg tablet 400 mg PO .as needed pain 12/24/24 12/24/24 History levothyroxine 112 mcg tablet 112 mcg PO QDAY 12/24/24 12/24/24 History levothyroxine 125 mcg tablet 125 mcg PO QDAY 12/24/24 12/24/24 History liothyronine 25 mcg tablet 25 mcg PO QDAY 12/24/24 12/24/24 History lisinopril 10 mg tablet 10 mg PO QDAY 12/24/24 12/24/24 History metoprolol succinate 50 mg 50 mg PO QDAY 12/24/24 12/24/24 History tablet,extended release 24 hr mirtazapine 15 mg tablet 15 mg PO .at bedtime 12/24/24 12/24/24 History tamsulosin 0.4 mg capsule 0.4 mg PO .at bedtime 12/24/24 12/24/24 History Allergies Allergy/AdvReac Type Severity Reaction Status Date / Time No Known Allergies Allergy Unverified 12/24/24 15:18 Exam Vital Signs Temp Pulse Resp BP Pulse Ox O2 Del Method O2 Flow Rate 99.0 F 67 17 165/108 H 97 Room Air 7 12/24/24 17:45 12/24/24 17:45 12/24/24 17:45 12/24/24 17:45 12/24/24 17:45 12/24/24 17:45 12/24/24 09:20 Constitutional Comments: Alert oriented Routine Respiratory Exam Comments: Normal to auscultation Routine Abdominal Exam Comments: Soft nontender Results Labs 12/24/24 08:13 12/24/24 08:13 Labs: Short CBC 12/24/24 Range/Units 08:13 WBC 5.0 (3.8-10.6) Thou/mm3 Hgb 9.5 L (13.5-16.0) g/dL Hct 28.8 L (41.0-53.0) % Plt Count 385 (140-440) Thou/mm3 BMP 12/24/24 08:13 Sodium 143 Potassium 3.8 Chloride 107 Carbon Dioxide 28.5 BUN 10 Creatinine 0.8 Glucose 111 H Calcium 10.0 Cardiac Enzymes 12/24/24 Range/Units 08:13 Troponin I < 0.002 (0.0-0.045) ng/mL Liver Function 12/24/24 12/24/24 Range/Units 08:13 08:30 Total Bilirubin 0.7 (0.3-1.2) mg/dL Direct Bilirubin 0.2 (0.0-0.3) mg/dL AST 23 (0-34) U/L ALT 15 (10-49) U/L Alkaline Phosphatase 84 (46-116) U/L Albumin 3.8 (3.4-4.8) gm/dL Urine 12/24/24 Range/Units 10:58 Urine Color Colorless A (Lt Yel-Yel) Urine Clarity Clear (Clear/Hazy) Urine pH 7.5 H (5.0-7.0) Ur Specific [place] 1.032 (1.001-1.035) Urine Protein Negative (Neg - Trace) Urine Glucose (UA) Negative (Negative) ABG Interpretation ABG results: 12/24/24 08:30 VBG pH 7.41 VBG pCO2 46 VBG pO2 36 VBG Base Excess 4 H Assessment and Plan Additional Assessment & Plan Additional Plan: # FOBT positive with acute posthemorrhagic anemia # Bradycardia requiring atropine in the ER # Hypotension resolved after IV fluids Plan Clear liquid diet IV Protonix Let the patient stabilize for the next 24 hours then I will do the endoscopy tomorrow afternoon Clear liquid diet till 9 AM tomorrow then n.p.o. Serial CBC Transfuse if the hemoglobin drops below 7 g Will follow the patient Other medical problems include Prostate carcinoma on chemotherapy Atrial fibrillation Hypothyroidism Thank you very much for the opportunity to participate in the care of this patient
[2024-12-25] VITALS (22 sets, daily range): BP systolic 125–216; BP diastolic 69–104; PULSE 60–76; RESP 16–97; TEMP 36–37.1; O2SAT 93–98; BMI 47.9
[2024-12-25 05:39] LABS: Basophils # (Auto) 0.0 Thou/mm3 (0.0-0.2); Basophils % (Auto) 0 % (0-2.5); Eosinophils # (Auto) 0.1 Thou/mm3 (0.0-0.5); Eosinophils % (Auto) 3 % (0-10); Hematocrit 30.9 % (41.0-53.0); Hemoglobin 10.3 g/dL (13.5-16.0); Immature Granulocytes Auto 0.02 Thou/mm3 (0.00-0.00); Lymphocytes # (Auto) 0.6 Thou/mm3 (1.0-4.8); Lymphocytes % (Auto) 13 % (10-50); Mean Corpuscular HGB Conc 33.3 g/dl (31.0-37.0); Mean Corpuscular Hemoglobin 29.8 pg (25.0-35.0); Mean Corpuscular Volume 89 fL (80-100); Monocytes # (Auto) 0.3 Thou/mm3 (0.0-0.8); Monocytes % (Auto) 6 % (0-12); Neutrophils # (Auto) 3.7 Thou/mm3 (1.8-7.7); Neutrophils % (Auto) 78 % (37-80); Nucleated Red Blood Cell # 0.00 Thou/mm3 (0.00-0.00); Nucleated Red Blood Cell % 0 /100 WBC (0); RDW Standard Deviation 43.3 fL (35.1-43.9); Red Blood Count 3.46 Miln/mm3 (4.50-5.90); White Blood Count 4.8 Thou/mm3 (3.8-10.6)
[2024-12-25 05:59] LABS: Glucose Estimated Average 126 mg/dL (80-131); Hemoglobin A1C 6.0 % Hgb (4.8-6.0)
[2024-12-25 06:01] LABS: Alanine Aminotransferase 14 U/L (10-49); Albumin, Serum 3.6 gm/dL (3.4-4.8); Albumin/Globulin Ratio 1.3 (1.2-2.2); Alkaline Phosphatase 83 U/L (46-116); Anion Gap 9 (7-16); Aspartate Amino Transferase 20 U/L (0-34); BUN/Creatinine Ratio 11 Ratio (12-20); Bilirubin,Total 0.7 mg/dL (0.3-1.2); Blood Urea Nitrogen 8 mg/dL (9-23); Calcium 9.7 mg/dL (8.3-10.6); Calcium (Corrected) 10.0 mg/dL (8.5-10.1); Carbon Dioxide 29.7 mMol/L (20.0-31.0); Cardiac Risk Estimate 6.0 RATIO (4.0-6.7); Chloride 107 mMol/L (98-107); Cholesterol 125 mg/dL (132-200); Creatinine (Component) 0.7 mg/dL (0.6-1.3); Estimated Creatinine Clearance 118.0 mL/min (>60); Globulin 2.8 gm/dL (2.3-3.5); Glucose 97 mg/dL (74-106); HDL Cholesterol 21 mg/dL (40-60); LDL Cholesterol,Calculated 78 mg/dL (0-130); Magnesium 1.6 mg/dL (1.6-2.6); Osmolality,Calculated 288 (275-295); Phosphorous 4.8 mg/dL (2.4-5.1); Potassium 3.7 mMol/L (3.4-5.1); Sodium 146 mMol/L (136-145); Total Protein 6.4 gm/dL (5.7-8.2); Triglycerides 129 mg/dL (30-150); eGFR > 60 See Note
[2024-12-25 06:25] LABS: Platelet Count 293 Thou/mm3 (140-440)
[2024-12-25] MEDS: METOPROLOL SUCCINATE XL 25 MG TABCR 50 MG PO (08:22)
[2024-12-25] MEDS: LEVOTHYROXINE SODIUM 125 MCG TABLET PO (08:22)
[2024-12-25] MEDS: Magnesium Sulfate 4 GM Ivpb 4 GM/50 ML BAG IV (08:23)
[2024-12-25] MEDS: cefTRIAXone/D5w 1gm IV premix 1 GM/50 ML BAG IV (08:24)
--- NOTE | 2024-12-25 11:49 | ESPR_ITS ---
<Statement entered by Rosendo Samson MD - 12/25/24 18:16> no acute overnight events. Patient denies any complaints. Labs done this morning showed hemoglobin of 10.3. Ceftriaxone is discontinued today as the blood cultures are negative and patient does not have any suspected underlying cirrhosis or varices. [employer] Measurer, Dr. Hutton is following the patient and likely will get upper GI endoscopy today. Anticipate discharge in next 24 to 48 hours I have personally seen and examined the patient, agree with residents assessment and plan Patient plan of care was discussed with the attending physician, Dr. Stephanie Samson, PGY2 Documentation for date of: 12/25/24 Subjective Subjective Interval history: Overnight events: No acute events overnight. Patient was seen and examined at bedside. AM vitals and labs reviewed. Patient does not appear to be in any acute distress at this time. Chest pain has resolved. Hemoglobin 10.3, sodium 146, hemoglobin A1c 6.0%, potassium 3.7, magnesium 1.6, HLD 21. Blood cultures negative after 24 hours. Stopped ceftriaxone given negative blood cultures and improving hemoglobin. Pending endoscopy per GI, patient NPO at 0900. Started atorvastatin 40 mg given low HDL. Review of systems otherwise negative except for what is mentioned above. Exam Vital Signs Temp Pulse Resp BP Pulse Ox O2 Del Method O2 Flow Rate 96.8 F 66 24 H 152/97 H 93 L Room Air 7 12/25/24 08:00 12/25/24 08:23 12/25/24 08:00 12/25/24 08:23 12/25/24 08:00 12/25/24 08:00 12/24/24 09:20 Narrative Exam Physical Exam: General: Alert, no acute distress. Skin: Warm, dry, intact. Head: Normocephalic, atraumatic. Eye: Slightly injected conjunctiva, PERRL. Throat: Oral mucosa moist. No obvious lesions in oropharynx. Cardiovascular: Regular rate and irregular rhythm, no murmur, +S1/S2. Respiratory: Lungs are clear to auscultation, respirations unlabored, no crackles, no wheezing. Gastrointestinal: Soft, nontender, non-distended. No guarding or rebound tenderness. Extremities: No edema, no cyanosis, no clubbing. 2+ radial pulse bilaterally, 2+ pedal pulse bilaterally. Neuro: No focal deficits observed. Conversant, moving all extremities. No overt cerebellar signs/incoordination. Psychiatric: Cooperative, appropriate affect. Objective Labs 12/26/24 05:09 12/26/24 05:09 Labs: Laboratory Results - last 24 hr 12/24/24 12/25/24 08:13 05:05 WBC 4.8 RBC 3.46 L Hgb 10.3 L Hct 30.9 L MCV 89 MCH 29.8 MCHC 33.3 RDW Std Deviation 43.3 Plt Count 293 D Neut % (Auto) 78 Lymph % (Auto) 13 [place] % (Auto) 6 Eos % (Auto) 3 Baso % (Auto) 0 Neut # (Auto) 3.7 Lymph # (Auto) 0.6 L [place] # (Auto) 0.3 Eos # (Auto) 0.1 Baso # (Auto) 0.0 Immature Gran # (Auto) 0.02 H Absolute Nucleated RBC 0.00 Immature Gran % 0 Nucleated RBC % 0 Sodium 146 H Potassium 3.7 Chloride 107 Carbon Dioxide 29.7 Anion Gap 9 BUN 8 L Creatinine 0.7 Estim Creat Clear Calc 118.0 eGFR > 60 BUN/Creatinine Ratio 11 L Glucose [address] Glu mg/dL 126 Hemoglobin A1c 6.0 Calculated Osmolality 288 Calcium 9.7 Corrected Calcium 10.0 Phosphorus 4.8 Magnesium 1.6 Total Bilirubin 0.7 AST 20 ALT 14 Alkaline Phosphatase 83 Total Protein 6.4 Albumin 3.6 Globulin 2.8 Albumin/Globulin Ratio 1.3 Triglycerides 129 Cholesterol 125 L LDL Cholesterol, Calc 78 HDL Cholesterol 21 L Cholesterol/HDL Ratio 6.0 Free T4 1.52 ABG Interpretation ABG results: 12/24/24 08:30 VBG pH 7.41 VBG pCO2 46 VBG pO2 36 VBG Base Excess 4 H Quality Measures Quality Measures VTE prophylaxis Advance care planning discussed with:: patient Assessment & Plan Assessment Current Active Medications: Generic Name Dose Route Start Last Admin Trade Name Freq PRN Reason Stop Dose Admin Ceftriaxone Sodium/Dextrose 1 gm in 50 mls @ 100 mls/hr 12/25/24 09:00 12/25/24 08:24 Rocephin/D5w 1gm Iv Premix IV 01/01/25 08:59 100 mls/hr QDAY JALEN Administration Magnesium Sulfate 4 gm in 50 mls @ 12.5 mls/hr 12/25/24 07:52 12/25/24 08:23 Magnesium Sulfate Ivpb IV 12/25/24 11:51 12.5 mls/hr X1 ONE Administration Levothyroxine Sodium 125 mcg 12/25/24 09:00 12/25/24 08:22 Levothyroxine Sodium 125 Mcg Tablet PO 01/24/25 08:59 125 mcg ACBR JALEN Administration Liothyronine Sodium 25 mcg 12/25/24 09:00 12/25/24 09:40 Liothyronine Sod 5 Mcg Tablet PO 01/24/25 08:59 Not Given ACBR JALEN Lisinopril 10 mg 12/25/24 09:00 12/25/24 08:23 Lisinopril 2.5 Mg Tablet PO 01/24/25 08:59 10 mg QDAY JALEN Administration Metoprolol Succinate 50 mg 12/25/24 09:00 12/25/24 08:22 Metoprolol Succinate Xl 25 Mg Tabcr PO 01/24/25 08:59 50 mg QDAY JALEN Administration Mirtazapine 15 mg 12/25/24 21:00 Mirtazapine 15 Mg Tablet PO 01/24/25 20:59 HS JALEN Ondansetron HCl 4 mg 12/24/24 13:11 Ondansetron Inj 2 Mg/Ml Inj 2 Ml IVP 01/23/25 13:10 Q6H PRN NAUSEA OR VOMITING Protocol Pantoprazole Sodium 40 mg 12/25/24 09:00 12/25/24 08:23 Pantoprazole Inj 40 Mg Vial IVP 01/24/25 08:59 40 mg QDAY JLAEN Administration Tamsulosin HCl 0.4 mg 12/25/24 21:00 Tamsulosin Hcl 0.4 Mg Capsule PO 01/24/25 20:59 HS JALEN Plan This patient is a 64-year-old Finnish speaking male with a past medical history of hypothyroidism, hypertension, A-fib, and prostate cancer on chemotherapy, who presents to [facility] ED on 12/24 for concerns of shortness of breath with chest pain and generalized weakness. The patient was admitted for management of GI bleed. #GI bleed, upper vs lower #FOBT positive Patient noted to have presented with paleness, soft BP, and hemoglobin of 9.5, which is decreased from 11.7 on 12/20 per outside records. Patient seemed to improve with IV fluid hydration. Given presentation and active Eliquis use, patient does have a possible GI bleed. FOBT positive for blood. HAS-BLED score 2; Risk was 4.1% in one validation study (Lip 2010) and 1.88 bleeds per 100 patient-years in another validation study (Pisters 2010). GBS score 8; A GBS greater than zero suggests a ?High Risk? GI bleed that is likely to require ?medical intervention?: transfusion, endoscopy, or surgery. A higher GBS also correlated with a higher likelihood of needing intervention (scores >= are associated with >50% risk of needing intervention) Plan: GI consulted, appreciate recommendations Patient made n.p.o. 1 L LR 12/24 Pantoprazole 40 mg daily Hold home Eliquis 5 mg twice daily given possible GI bleed Ceftriaxone 1 gm daily (12/24-12/25), stopped given improving hemoglobin and negative blood cultures #Atrial fibriliation #Pre-syncope #Chest pain, atypical #Aortic aneurysm, ascending aorta, 4.5 cm diameter Patient noted to have a history of atrial fibrillation. It is unclear when this first started, however the patient was recently diagnosed within the last month. Patient does follow Dr. Russell for outpatient management, and does take Eliquis and metoprolol at home. Previous echocardiogram showed ejection fraction 73%, nuclear medicine stress test negative. Patient is also noted to have these episodes of what seem to be presyncope where the patient will randomly have episodes of becoming pale, slightly confused, chest pain, shortness of breath, and noted to have some generalized weakness. Diagnostics: CTA chest/abdomen/pelvis showed mild aneurysmal dilation of ascending thoracic aorta that measures 4.5 cm in diameter Plan: Hold home Eliquis 5 mg twice daily given possible GI bleed Orthostatic vitals ordered, pending Patient to follow-up with outpatient cardiology Blood cultures collected 12/24, preliminary negative after 24 hours Lipid panel ordered, low HDL, started patient on atorvastatin 40 mg nightly #Prostate cancer, on chemotherapy Patient does have a history of prostate cancer. Unspecified when exactly the patient was diagnosed, but that the patient does follow Dr. Olea at [facility] for management. Patient takes abiraterone at home as chemotherapy, which has been noted to cause arrhythmias and chest pain, although it is a relatively uncommon side effect. Plan: Will hold abiraterone for now, patient will follow-up with outpatient oncology to resume Resumed home tamsulosin 0.4 mg nightly #Primary hypertension Patient has a history of primary hypertension and takes lisinopril 10 mg daily and metoprolol succinate 50 mg daily at home. Plan: Resume lisinopril 10 mg daily Metoprolol sucinate 50 mg daily #Hypothyroidism Patient noted to have a history of hypothyroidism. Patient takes levothyroxine and levothyroxine at home. On admission, TSH 0.52 and free T4 1.52 Plan: Resumed levothyroxine 125 mcg ACBR Resumed liothyronine 25 mcg ACBR #Depression Patient noted to take mirtazapine at home. Plan: Resumed mirtazapine 15 mg nightly DVT Prophylaxis: SCDs GI Prophylaxis: Protonix Bowel: N/A Diet: NPO Rios: N/A Lines: Peripheral IV Antibiotics: N/A Code Status: FULL Reason for Hospitalization: GI bleed Other Barriers to Discharge: GI consult Patient plan of care was discussed with attending physician Dr. Stephanie Chan, PGY1 Attending Provider Attestation/Addendum I have discussed and was present for the essential components of the history, physical examination, diagnosis, and treatment plan with the resident. I agree with the patient's care as documented by the resident and amended herein by me. Aleks Brown DO. Although this document has been carefully reviewed, there may still be some phonetic and other typographical errors. These errors are purely grammatical due to imperfections in the software program and should not be construed in any way to compromise the substance of the patient's medical care during this visit.
[2024-12-25] MEDS: hydrALAZINE INJ 20 MG/ML VIAL 10 MG IVP (19:23)
--- NOTE | 2024-12-25 19:30 | SUR.PHASEI ---
Arrived to recovery [facility] via gurney. Report received from Irma WILLIAMSON. Resting with eyes closed but responding to questions and commands appropriately. No c/o pain or discomfort.
--- NOTE | 2024-12-25 19:43 | PC.NURSE ---
Hydralazine 10mg IV given in recovery by Irma WILLIAMSON.
--- NOTE | 2024-12-25 19:57 | SUR.PHASEI ---
Taken to room 275 via gurney.. Transferred to bed with assist of 2 CNAs and mik gallardo. Tolerated well. Family waiting outside of room for patient to be made comfortable. No s/o distress or discomfort. No c/o pain.
[2024-12-25] MEDS: NA SU/NAHCO3/KC/PEG (Golytely) 4,000 ML BTL 4000 ML PO (20:28)
[2024-12-25] MEDS: TAMSULOSIN HCL 0.4 MG CAPSULE PO (20:29)
[2024-12-25] MEDS: MIRTAZAPINE 15 MG TABLET PO (20:29)
--- NOTE | 2024-12-25 20:56 | XR_ITS ---
Examination: Venous duplex upper extremity sonogram, bilateral. Date and time of exam: December 25, 2024 2101 hrs. Indications: Bilateral arm pain and swelling beginning 2 days ago, currently on pelvic rest, diagnosis malignant neoplasm prostate Technique: Multiple sonographic images of the deep venous system have been obtained. B-mode/2-D grayscale imaging of vascular structures and Doppler spectral analysis (waveforms) and color performed Both legs are examined. Findings: Deep venous systems do not demonstrate abnormal echogenicity. All visualized deep veins exhibit compressibility. All visualized deep veins exhibit augmentation. Impression: Negative for deep vein thrombosis
[2024-12-26] VITALS (20 sets, daily range): BP systolic 123–179; BP diastolic 69–102; PULSE 66–94; RESP 15–32; TEMP 36.3–36.8; O2SAT 91–98; BMI 46.3; BMI 46.6
[2024-12-26] MEDS: LEVOTHYROXINE SODIUM 125 MCG TABLET PO (05:18)
[2024-12-26] MEDS: LIOTHYRONINE SOD 5 mCg TABLET 25 MCG PO (05:18)
[2024-12-26 05:44] LABS: Basophils # (Auto) 0.0 Thou/mm3 (0.0-0.2); Basophils % (Auto) 0 % (0-2.5); Eosinophils # (Auto) 0.1 Thou/mm3 (0.0-0.5); Eosinophils % (Auto) 1 % (0-10); Hematocrit 30.9 % (41.0-53.0); Hemoglobin 10.2 g/dL (13.5-16.0); Immature Granulocytes Auto 0.02 Thou/mm3 (0.00-0.00); Lymphocytes # (Auto) 0.7 Thou/mm3 (1.0-4.8); Lymphocytes % (Auto) 10 % (10-50); Mean Corpuscular HGB Conc 33.0 g/dl (31.0-37.0); Mean Corpuscular Hemoglobin 29.1 pg (25.0-35.0); Mean Corpuscular Volume 88 fL (80-100); Monocytes # (Auto) 0.6 Thou/mm3 (0.0-0.8); Monocytes % (Auto) 8 % (0-12); Neutrophils # (Auto) 5.7 Thou/mm3 (1.8-7.7); Neutrophils % (Auto) 80 % (37-80); Nucleated Red Blood Cell # 0.00 Thou/mm3 (0.00-0.00); Nucleated Red Blood Cell % 0 /100 WBC (0); Platelet Count 327 Thou/mm3 (140-440); RDW Standard Deviation 43.8 fL (35.1-43.9); Red Blood Count 3.50 Miln/mm3 (4.50-5.90); White Blood Count 7.1 Thou/mm3 (3.8-10.6)
[2024-12-26 06:08] LABS: Alanine Aminotransferase 11 U/L (10-49); Albumin, Serum 3.8 gm/dL (3.4-4.8); Albumin/Globulin Ratio 1.3 (1.2-2.2); Alkaline Phosphatase 86 U/L (46-116); Anion Gap 11 (7-16); Aspartate Amino Transferase 15 U/L (0-34); BUN/Creatinine Ratio 10 Ratio (12-20); Bilirubin,Total 0.9 mg/dL (0.3-1.2); Blood Urea Nitrogen 8 mg/dL (9-23); Calcium 9.8 mg/dL (8.3-10.6); Calcium (Corrected) 10.0 mg/dL (8.5-10.1); Carbon Dioxide 29.2 mMol/L (20.0-31.0); Chloride 104 mMol/L (98-107); Creatinine (Component) 0.8 mg/dL (0.6-1.3); Estimated Creatinine Clearance 103.2 mL/min (>60); Globulin 2.9 gm/dL (2.3-3.5); Glucose 120 mg/dL (74-106); Osmolality,Calculated 286 (275-295); Potassium 3.3 mMol/L (3.4-5.1); Sodium 144 mMol/L (136-145); Total Protein 6.7 gm/dL (5.7-8.2); eGFR > 60 See Note
[2024-12-26 07:50] LABS: Immature Reticulocyte Fraction 14.3 % (2.3-13.4); Reticulocyte % (Auto) 1.8 % (0.5-1.5); Reticulocyte Absolute Auto 61.6 Biln/L (25.0-75.0); Reticulocyte Hgb Content 32.8 pg (28.0-35.0)
--- NOTE | 2024-12-26 08:18 | PC.SS ---
Late note 12-25-24: SS met with patient regarding his d/c plan. Pt is alert/oriented. Pt was admitted for GI Bleed. Pt confirmed demographic and contact information is correct on facesheet. Pt resides with his son. Pt ambulates independently without assistance or DME. Pt is ok with all ADLs. Patient?s pharmacy of choice is [facility] [address]. Pt named his son, Ney Portillo medical decision maker if he is unable. SS provided verbal choices for d/c to home or SNF. Patient?s choice is to return home upon d/c. Pt does not have an advance directive, SS offered, and pt declined. Pt states not diabetic and is not on dialysis. Pt states he followed up with PCP in November. Son, will provide transportation home. D/C plan: Return home Next of Kin: Son, Ney Portillo, phone# [phone] PCP: Dr. Alexsander Echavarria Address: Correct on facesheet
[2024-12-26] MEDS: METOPROLOL SUCCINATE XL 25 MG TABCR 50 MG PO (08:21)
[2024-12-26] MEDS: PANTOPRAZOLE 40 MG TABLET PO (08:22)
[2024-12-26 08:32] LABS: Ferritin 341 ng/mL (10.5-307.3); Iron 16 mcg/dL (65-175); Percent Iron Saturation 5 % (20-55); Total Iron Binding Capacity 286 mcg/dL (250-425); Unsaturated Iron Binding 270 (225-295)
[2024-12-26] MEDS: NA SU/NAHCO3/KC/PEG (Golytely) 4,000 ML BTL 4000 ML PO (09:48)
[2024-12-26 10:05] LABS: Folate 11.83 ng/mL (>5.38); Vitamin B12 697 pg/mL (211-911)
--- NOTE | 2024-12-26 10:23 | PC.SS ---
Update: Plan is for the patient to obtain colonscopy today.
--- NOTE | 2024-12-26 12:44 | ESPR_ITS ---
Documentation for date of: 12/26/24 Subjective Subjective Interval history: Patient seen and assessed in hospital bed denies having any concerning symptoms at this time. Patient had endoscopy completed yesterday with gastroenterology which showed esophagitis but no signs of active bleeding. Gastroenterology recommends the patient be bowel prepped for colonoscopy which will be completed later this afternoon. Patient also has severe iron deficiency anemia noted on laboratory findings; moreover, will give IV iron to replete storage. Will continue monitor for any acute changes and expect discharge within the next 24 to 48 hours. Exam Vital Signs Temp Pulse Resp BP Pulse Ox O2 Del Method O2 Flow Rate 98.0 F 76 17 175/87 H 91 L Room Air 2 12/26/24 08:00 12/26/24 08:22 12/26/24 08:00 12/26/24 08:22 12/26/24 08:00 12/26/24 08:00 12/26/24 04:00 Narrative Exam Physical Exam: General: Alert, no acute distress. Skin: Warm, dry, intact. Head: Normocephalic, atraumatic. Eye: Slightly injected conjunctiva, PERRL. Throat: Oral mucosa moist. No obvious lesions in oropharynx. Cardiovascular: Regular rate and irregular rhythm, no murmur, +S1/S2. Respiratory: Lungs are clear to auscultation, respirations unlabored, no crackles, no wheezing. Gastrointestinal: Soft, nontender, non-distended. No guarding or rebound tenderness. Extremities: No edema, no cyanosis, no clubbing. 2+ radial pulse bilaterally, 2+ pedal pulse bilaterally. Neuro: No focal deficits observed. Conversant, moving all extremities. No overt cerebellar signs/incoordination. Psychiatric: Cooperative, appropriate affect. Objective Labs 12/26/24 05:09 12/26/24 05:09 Labs: Laboratory Results - last 24 hr 12/26/24 05:09 WBC 7.1 D RBC 3.50 L Hgb 10.2 L Hct 30.9 L MCV 88 MCH 29.1 MCHC 33.0 RDW Std Deviation 43.8 Plt Count 327 D Neut % (Auto) 80 Lymph % (Auto) 10 [place] % (Auto) 8 Eos % (Auto) 1 Baso % (Auto) 0 Neut # (Auto) 5.7 Lymph # (Auto) 0.7 L [place] # (Auto) 0.6 Eos # (Auto) 0.1 Baso # (Auto) 0.0 Immature Gran # (Auto) 0.02 H Absolute Nucleated RBC 0.00 Immature Gran % 0 Nucleated RBC % 0 Retic Count (auto) 1.8 H Absolute Retic 61.6 Immature Retic Fraction 14.3 H Retic Hgb Content CHr 32.8 Sodium 144 Potassium 3.3 L Chloride 104 Carbon Dioxide 29.2 Anion Gap 11 BUN 8 L Creatinine 0.8 Estim Creat Clear Calc 103.2 eGFR > 60 BUN/Creatinine Ratio 10 L Glucose 120 H Calculated Osmolality 286 Calcium 9.8 Corrected Calcium 10.0 Iron 16 L TIBC 286 Iron Saturation 5 L Unsat Iron Binding 270 Ferritin 341 H Total Bilirubin 0.9 AST 15 ALT 11 Alkaline Phosphatase 86 Total Protein 6.7 Albumin 3.8 Globulin 2.9 Albumin/Globulin Ratio 1.3 Vitamin B12 697 Folate 11.83 ABG Interpretation ABG results: 12/24/24 08:30 VBG pH 7.41 VBG pCO2 46 VBG pO2 36 VBG Base Excess 4 H Quality Measures Quality Measures VTE prophylaxis Advance care planning discussed with:: patient Assessment & Plan Assessment Current Active Medications: Generic Name Dose Route Start Last Admin Trade Name Freq PRN Reason Stop Dose Admin Atorvastatin Calcium 40 mg 12/25/24 21:00 12/25/24 20:35 Atorvastatin Calcium 20 Mg Tablet PO 01/24/25 20:59 Not Given HS JALEN Potassium Chloride 10 meq in 100 mls @ 100 mls/hr 12/26/24 12:45 Kcl Ivpb IV 12/26/24 16:44 Q1H JALEN Levothyroxine Sodium 125 mcg 12/25/24 09:00 12/26/24 05:18 Levothyroxine Sodium 125 Mcg Tablet PO 01/24/25 08:59 125 mcg ACBR JALEN Administration Liothyronine Sodium 25 mcg 12/25/24 09:00 12/26/24 05:18 Liothyronine Sod 5 Mcg Tablet PO 01/24/25 08:59 25 mcg ACBR JALEN Administration Lisinopril 10 mg 12/25/24 09:00 12/26/24 08:22 Lisinopril 2.5 Mg Tablet PO 01/24/25 08:59 10 mg QDAY JALEN Administration Metoprolol Succinate 50 mg 12/25/24 09:00 12/26/24 08:21 Metoprolol Succinate Xl 25 Mg Tabcr PO 01/24/25 08:59 50 mg QDAY JALEN Administration Mirtazapine 15 mg 12/25/24 21:00 12/25/24 20:29 Mirtazapine 15 Mg Tablet PO 01/24/25 20:59 15 mg HS JALEN Administration Ondansetron HCl 4 mg 12/24/24 13:11 Ondansetron Inj 2 Mg/Ml Inj 2 Ml IVP 01/23/25 13:10 Q6H PRN NAUSEA OR VOMITING Protocol Pantoprazole Sodium 40 mg 12/26/24 09:00 12/26/24 08:22 Pantoprazole 40 Mg Tablet PO 01/25/25 08:59 40 mg QDAY JALEN Administration Tamsulosin HCl 0.4 mg 12/25/24 21:00 12/25/24 20:29 Tamsulosin Hcl 0.4 Mg Capsule PO 01/24/25 20:59 0.4 mg HS JALEN Administration Plan This patient is a 64-year-old American speaking male with a past medical history of hypothyroidism, hypertension, A-fib, and prostate cancer on chemotherapy, who presents to [facility] ED on 12/24 for concerns of shortness of breath with chest pain and generalized weakness. The patient was admitted for management of GI bleed. #GI bleed, possibly lower #Esophagitis #Gastritis Patient noted to have presented with paleness, soft BP, and hemoglobin of 9.5, which is decreased from 11.7 on 12/20 per outside records. Patient seemed to improve with IV fluid hydration. Given presentation and active Eliquis use, patient does have a possible GI bleed. FOBT positive for blood. HAS-BLED score 2; Risk was 4.1% in one validation study (Lip 2011) and 1.88 bleeds per 100 patient-years in another validation study (Pisters 2010). GBS score 8; A GBS greater than zero suggests a ?High Risk? GI bleed that is likely to require ?medical intervention?: transfusion, endoscopy, or surgery. A higher GBS also correlated with a higher likelihood of needing intervention (scores >= are associated with >50% risk of needing intervention) Endoscopy showed esophagitis, gastritis with no specimen collection Hemoglobin largely stable post endoscopy, 10.2 Plan: GI consulted, appreciate recommendations On clear liquid diet, GoLytely prep for colonoscopy Pantoprazole 40 mg daily Hold home Eliquis 5 mg twice daily given possible GI bleed #Atrial fibriliation #Pre-syncope #Chest pain, atypical #Aortic aneurysm, ascending aorta, 4.5 cm diameter Patient noted to have a history of atrial fibrillation. It is unclear when this first started, however the patient was recently diagnosed within the last month. Patient does follow Dr. Russell for outpatient management, and does take Eliquis and metoprolol at home. Previous echocardiogram showed ejection fraction 73%, nuclear medicine stress test negative. Patient is also noted to have these episodes of what seem to be presyncope where the patient will randomly have episodes of becoming pale, slightly confused, chest pain, shortness of breath, and noted to have some generalized weakness. Diagnostics: CTA chest/abdomen/pelvis showed mild aneurysmal dilation of ascending thoracic aorta that measures 4.5 cm in diameter Orthostatic vitals were negative Blood cultures collected 12/24, preliminary negative after 48 hours Plan: Hold home Eliquis 5 mg twice daily given possible GI bleed Patient to follow-up with outpatient cardiology Continue atorvastatin 40 mg nightly Follow-up outpatient for aortic aneurysm, ascending aorta with repeat imaging #Prostate cancer, on chemotherapy Patient does have a history of prostate cancer. Unspecified when exactly the patient was diagnosed, but that the patient does follow Dr. Olea at [facility] for management. Patient takes abiraterone at home as chemotherapy, which has been noted to cause arrhythmias and chest pain, although it is a relatively uncommon side effect. Plan: Will hold abiraterone for now, patient will follow-up with outpatient oncology to resume Continue home tamsulosin 0.4 mg nightly #Primary hypertension Patient has a history of primary hypertension and takes lisinopril 10 mg daily and metoprolol succinate 50 mg daily at home. Plan: Continue lisinopril 10 mg daily Continue metoprolol sucinate 50 mg daily #Hypothyroidism Patient noted to have a history of hypothyroidism. Patient takes levothyroxine and levothyroxine at home. On admission, TSH 0.52 and free T4 1.52 Plan: Continue levothyroxine 125 mcg ACBR Continue liothyronine 25 mcg ACBR #Depression Patient noted to take mirtazapine at home. Plan: Continue mirtazapine 15 mg nightly Health Maintenance: DVT Prophylaxis: SCDs GI Prophylaxis: Protonix Bowel: N/A Diet: Clear liquid diet Lines: PIV Dispo: Pending colonoscopy for possible lower GI bleed Code Status: FULL Patient seen and assessed with attending Dr. Stephanie Remy DO PGY-2 Internal Medicine - GME Attending Provider Attestation/Addendum I have discussed and was present for the essential components of the history, physical examination, diagnosis, and treatment plan with the resident. I agree with the patient's care as documented by the resident and amended herein by me. Aleks Brown DO. Although this document has been carefully reviewed, there may still be some phonetic and other typographical errors. These errors are purely grammatical due to imperfections in the software program and should not be construed in any way to compromise the substance of the patient's medical care during this visit.
[2024-12-26] MEDS: POTASSIUM CHL 10 mEq IVPB 10 MEQ/100 ML BAG 75 MEQ IV ×4 (12:46→18:13)
--- NOTE | 2024-12-26 20:15 | SUR.PHASEI ---
2014 patient arrived to recovery resting comfortably in [facility], on oxygen 3L via nasal cannula, breathing unlabored, vital signs stable, denies pain and nausea, report received from Betina Gant RN
--- NOTE | 2024-12-26 20:48 | SUR.PHASEI ---
2046 Report given to Blaine WILLIAMSON, patient meets discharge criteria from recovery, awake sitting up in [facility] drinking water, on oxygen 3L via nasal cannula, breathing unlabored, vital signs stable, denies pain and nausea 2047 Patient transported via rney to room 275 without incident.
[2024-12-26] MEDS: TAMSULOSIN HCL 0.4 MG CAPSULE PO (21:13)
[2024-12-26] MEDS: MIRTAZAPINE 15 MG TABLET PO (21:13)
[2024-12-27] VITALS (7 sets, daily range): BP systolic 114–167; BP diastolic 75–89; PULSE 79–102; RESP 17–27; TEMP 36.6–37.3; O2SAT 92–98; BMI 46.0; BMI 11.0
--- NOTE | 2024-12-27 01:07 | PC.NURSE ---
MD LOCO NOTIFIED OF THE PATIENTS CHANGE IN RHYTHM TO AFIB WITH A HIGH HR SUSTAINING IN THE LOW 100'S. MD ADVISED TO MONITOR FOR ANY CHANGES IN RESPIRATORY DRIVE, WELL MONITOR THE HEART RATE FOR ANY SYMPTOMATIC RESPONSES. PT. COMPLAINS OF NO SOB, OR HEART PALPITATIONS. NO PAIN REPORTED WELL. WILL CONTINUE WITH PLAN OF CARE AND CALLED RT AT [id number] FOR A SECOND OPINION ON RESPIRATORY EFFORT ON 3L NC.
--- NOTE | 2024-12-27 01:58 | XR_ITS ---
Examination: AP chest single view Technique one AP portable upright chest single view Date and time: December 27, 2024, 0219 hrs., Comparison December 24, 2024 Indications: Shortness of breath today. Findings: Mild heart failure Mild enlargement cardiac contour Prominent vascular congestion including central vascular engorgement. Early perihilar edema Ectatic thoracic aorta Prominent osteopenia Impression: Mild heart failure
[2024-12-27] MEDS: LIOTHYRONINE SOD 5 mCg TABLET 25 MCG PO (05:12)
[2024-12-27] MEDS: LEVOTHYROXINE SODIUM 125 MCG TABLET PO (05:12)
[2024-12-27 05:57] LABS: Basophils # (Auto) 0.0 Thou/mm3 (0.0-0.2); Basophils % (Auto) 0 % (0-2.5); Eosinophils # (Auto) 0.0 Thou/mm3 (0.0-0.5); Eosinophils % (Auto) 0 % (0-10); Hematocrit 30.7 % (41.0-53.0); Hemoglobin 10.2 g/dL (13.5-16.0); Immature Granulocytes Auto 0.02 Thou/mm3 (0.00-0.00); Lymphocytes # (Auto) 0.6 Thou/mm3 (1.0-4.8); Lymphocytes % (Auto) 8 % (10-50); Mean Corpuscular HGB Conc 33.2 g/dl (31.0-37.0); Mean Corpuscular Hemoglobin 29.7 pg (25.0-35.0); Mean Corpuscular Volume 90 fL (80-100); Monocytes # (Auto) 0.7 Thou/mm3 (0.0-0.8); Monocytes % (Auto) 9 % (0-12); Neutrophils # (Auto) 5.8 Thou/mm3 (1.8-7.7); Neutrophils % (Auto) 82 % (37-80); Nucleated Red Blood Cell # 0.00 Thou/mm3 (0.00-0.00); Nucleated Red Blood Cell % 0 /100 WBC (0); Platelet Count 284 Thou/mm3 (140-440); RDW Standard Deviation 44.5 fL (35.1-43.9); Red Blood Count 3.43 Miln/mm3 (4.50-5.90); White Blood Count 7.1 Thou/mm3 (3.8-10.6)
[2024-12-27 06:32] LABS: Alanine Aminotransferase 8 U/L (10-49); Albumin, Serum 3.7 gm/dL (3.4-4.8); Albumin/Globulin Ratio 1.4 (1.2-2.2); Alkaline Phosphatase 75 U/L (46-116); Anion Gap 10 (7-16); Aspartate Amino Transferase 14 U/L (0-34); BUN/Creatinine Ratio 8 Ratio (12-20); Bilirubin,Total 1.3 mg/dL (0.3-1.2); Blood Urea Nitrogen < 5 mg/dL (9-23); Calcium 9.2 mg/dL (8.3-10.6); Calcium (Corrected) 9.4 mg/dL (8.5-10.1); Carbon Dioxide 28.6 mMol/L (20.0-31.0); Chloride 103 mMol/L (98-107); Creatinine (Component) 0.6 mg/dL (0.6-1.3); Estimated Creatinine Clearance 131.6 mL/min (>60); Globulin 2.7 gm/dL (2.3-3.5); Glucose 115 mg/dL (74-106); Osmolality,Calculated 281 (275-295); Potassium 3.1 mMol/L (3.4-5.1); Sodium 142 mMol/L (136-145); Total Protein 6.4 gm/dL (5.7-8.2); eGFR > 60 See Note
[2024-12-27] MEDS: APIXABAN 2.5 MG TABLET 5 MG PO (08:57)
[2024-12-27] MEDS: METOPROLOL SUCCINATE XL 25 MG TABCR 50 MG PO (08:57)
--- NOTE | 2024-12-27 09:07 | PC.NURSE ---
Notified Dr. Chan that pts right arm is still very painful and sensitive to touch, pt is guarding right arm and unable to move as much as the left arm, right leg also has slight pain but is noticeably weaker than the left. states he will come and assess pt at bedside.
--- NOTE | 2024-12-27 11:49 | ESPR_ITS ---
<Statement entered by Chirag Remy MD - 12/27/24 15:54> I have personally seen and examined the patient. I agree with the resident's assessment and plan as documented below. Chirag Remy DO PGY-2 Internal Medicine - GME Documentation for date of: 12/27/24 Subjective Subjective Interval history: Overnight events: No acute events overnight. Patient was seen and examined at bedside. AM vitals and labs reviewed. Patient does not appear to be in any acute distress at this time. Patient did have swelling of his right upper extremity, so night team ordered bilateral venous duplex of the upper extremities, which was negative for DVTs. Patient told nursing staff that his arm is painful and he is unable to move it, however upon examination today, the patient had no pain on palpation of the right arm and had no difficulty with movement of the right arm. Given these findings, it is likely that the patient had a blown vein in the right arm. Potassium 3.1 and bilirubin 1.3. Iron 16, iron saturation 5%, and ferritin 341. Upper endoscopy shows gastritis while colonoscopy showed internal hemorrhoids that were banded. Per GI, no further GI workup necessary. Stopped Protonix. Increased lisinopril from 10 mg daily to 20 mg daily. Continue metoprolol 50 mg daily. PT was ordered given weakness in bilateral lower extremities, recommended SNF placement. Pending SNF authorization and placement. Review of systems otherwise negative except for what is mentioned above. Exam Vital Signs Temp Pulse Resp BP Pulse Ox O2 Del Method O2 Flow Rate 98.0 F 85 18 148/87 H 98 Nasal Cannula 3 12/27/24 08:00 12/27/24 08:57 12/27/24 08:00 12/27/24 08:57 12/27/24 08:00 12/27/24 08:00 12/27/24 08:00 Narrative Exam Physical Exam: General: Alert, no acute distress. Skin: Warm, dry, intact. Head: Normocephalic, atraumatic. Eye: Slightly injected conjunctiva, PERRL. Cardiovascular: Regular rate and irregular rhythm, no murmur, +S1/S2. Respiratory: Lungs are clear to auscultation, respirations unlabored, no crackles, no wheezing. Gastrointestinal: Soft, nontender, non-distended. No guarding or rebound tenderness. Extremities: Right arm 1+ non-pitting edema, no cyanosis, no clubbing. Neuro: No focal deficits observed. Conversant, moving all extremities. No overt cerebellar signs/incoordination. Psychiatric: Cooperative, appropriate affect. Objective Labs 12/27/24 05:12 12/27/24 05:12 Labs: Laboratory Results - last 24 hr 12/27/24 05:12 WBC 7.1 RBC 3.43 L Hgb 10.2 L Hct 30.7 L MCV 90 MCH 29.7 MCHC 33.2 RDW Std Deviation 44.5 H Plt Count 284 D Neut % (Auto) 82 H Lymph % (Auto) 8 L [place] % (Auto) 9 Eos % (Auto) 0 Baso % (Auto) 0 Neut # (Auto) 5.8 Lymph # (Auto) 0.6 L [place] # (Auto) 0.7 Eos # (Auto) 0.0 Baso # (Auto) 0.0 Immature Gran # (Auto) 0.02 H Absolute Nucleated RBC 0.00 Immature Gran % 0 Nucleated RBC % 0 Sodium 142 Potassium 3.1 L Chloride 103 Carbon Dioxide 28.6 Anion Gap 10 BUN < 5 L Creatinine 0.6 Estim Creat Clear Calc 131.6 eGFR > 60 BUN/Creatinine Ratio 8 L Glucose 115 H Calculated Osmolality 281 Calcium 9.2 Corrected Calcium 9.4 Total Bilirubin 1.3 H AST 14 ALT 8 L Alkaline Phosphatase 75 Total Protein 6.4 Albumin 3.7 Globulin 2.7 Albumin/Globulin Ratio 1.4 ABG Interpretation ABG results: 12/24/24 08:30 VBG pH 7.41 VBG pCO2 46 VBG pO2 36 VBG Base Excess 4 H Quality Measures Quality Measures VTE prophylaxis Advance care planning discussed with:: patient Assessment & Plan Assessment Current Active Medications: Generic Name Dose Route Start Last Admin Trade Name Freq PRN Reason Stop Dose Admin Apixaban 5 mg 12/27/24 09:00 12/27/24 08:57 Apixaban 2.5 Mg Tablet PO 01/26/25 08:59 5 mg BID JALEN Administration Atorvastatin Calcium 40 mg 12/25/24 21:00 12/26/24 21:13 Atorvastatin Calcium 20 Mg Tablet PO 01/24/25 20:59 Not Given HS JALEN Levothyroxine Sodium 125 mcg 12/25/24 09:00 12/27/24 05:12 Levothyroxine Sodium 125 Mcg Tablet PO 01/24/25 08:59 125 mcg ACBR JALEN Administration Liothyronine Sodium 25 mcg 12/25/24 09:00 12/27/24 05:12 Liothyronine Sod 5 Mcg Tablet PO 01/24/25 08:59 25 mcg ACBR JALEN Administration Lisinopril 20 mg 12/27/24 09:00 12/27/24 08:57 Lisinopril 20 Mg Tablet PO 01/26/25 08:59 20 mg QDAY JALEN Administration Metoprolol Succinate 50 mg 12/25/24 09:00 12/27/24 08:57 Metoprolol Succinate Xl 25 Mg Tabcr PO 01/24/25 08:59 50 mg QDAY JALEN Administration Mirtazapine 15 mg 12/25/24 21:00 12/26/24 21:13 Mirtazapine 15 Mg Tablet PO 01/24/25 20:59 15 mg HS JALEN Administration Ondansetron HCl 4 mg 12/24/24 13:11 Ondansetron Inj 2 Mg/Ml Inj 2 Ml IVP 01/23/25 13:10 Q6H PRN NAUSEA OR VOMITING Protocol Tamsulosin HCl 0.4 mg 12/25/24 21:00 12/26/24 21:13 Tamsulosin Hcl 0.4 Mg Capsule PO 01/24/25 20:59 0.4 mg HS JALEN Administration Plan This patient is a 64-year-old [place] speaking male with a past medical history of hypothyroidism, hypertension, A-fib, and prostate cancer on chemotherapy, who presents to [facility] ED on 12/24 for concerns of shortness of breath with chest pain and generalized weakness. The patient was admitted for management of GI bleed. #GI bleed, possibly lower, resolved #Internal hemorrhoids, banded #Esophagitis #Gastritis Patient noted to have presented with paleness, soft BP, and hemoglobin of 9.5, which is decreased from 11.7 on 12/20 per outside records. Patient seemed to improve with IV fluid hydration. Given presentation and active Eliquis use, patient does have a possible GI bleed. FOBT positive for blood. HAS-BLED score 2; Risk was 4.1% in one validation study (Lip 2011) and 1.88 bleeds per 100 patient-years in another validation study (Pisters 2010). GBS score 8; A GBS greater than zero suggests a ?High Risk? GI bleed that is likely to require ?medical intervention?: transfusion, endoscopy, or surgery. A higher GBS also correlated with a higher likelihood of needing intervention (scores >= are associated with >50% risk of needing intervention) Endoscopy 12/25 showed esophagitis, gastritis with no specimen collection Colonoscopy 12/26 showed internal hemorrhoids that were banded Hemoglobin largely stable post endoscopy at 10.2, and stable post colonscopy at 10.2 Plan: GI consulted, recommends no further GI workup Resumed home Eliquis 5 mg twice daily given resolution of GI bleed #Atrial fibriliation #Pre-syncope #Chest pain, atypical #Aortic aneurysm, ascending aorta, 4.5 cm diameter Patient noted to have a history of atrial fibrillation. It is unclear when this first started, however the patient was recently diagnosed within the last month. Patient does follow Dr. Russell for outpatient management, and does take Eliquis and metoprolol at home. Previous echocardiogram showed ejection fraction 73%, nuclear medicine stress test negative. Patient is also noted to have these episodes of what seem to be presyncope where the patient will randomly have episodes of becoming pale, slightly confused, chest pain, shortness of breath, and noted to have some generalized weakness. Diagnostics: CTA chest/abdomen/pelvis showed mild aneurysmal dilation of ascending thoracic aorta that measures 4.5 cm in diameter Orthostatic vitals were negative Blood cultures collected 12/24, preliminary negative after 48 hours Plan: Resumed home Eliquis 5 mg twice daily given resolution of GI bleed Patient to follow-up with outpatient cardiology Continue atorvastatin 40 mg nightly Cardiac diet Follow-up outpatient for aortic aneurysm, ascending aorta with repeat imaging #Anemia, normocytic #Anemia of chronic disease Patient noted to be anemic throughout hospitalization stay. Iron panel shows low iron and iron saturation with high ferritin, which is suggestive of anemia of chronic disease. Plan: Patient to follow-up outpatient #Prostate cancer, on chemotherapy, s/p radiation therapy Patient does have a history of prostate cancer. Unspecified when exactly the patient was diagnosed, but that the patient does follow Dr. Olea at [facility] for management. Patient takes abiraterone at home as chemotherapy, which has been noted to cause arrhythmias and chest pain, although it is a relatively uncommon side effect. Plan: Will hold abiraterone for now, patient will follow-up with outpatient oncology to resume Continue home tamsulosin 0.4 mg nightly #Primary hypertension Patient has a history of primary hypertension and takes lisinopril 10 mg daily and metoprolol succinate 50 mg daily at home. Plan: Continue lisinopril 10 mg daily, increased to 20 mg daily on 12/27 Continue metoprolol sucinate 50 mg daily #Hypothyroidism Patient noted to have a history of hypothyroidism. Patient takes levothyroxine and levothyroxine at home. On admission, TSH 0.52 and free T4 1.52 Plan: Continue levothyroxine 125 mcg ACBR Continue liothyronine 25 mcg ACBR #Depression Patient noted to take mirtazapine at home. Plan: Continue mirtazapine 15 mg nightly Health Maintenance: DVT Prophylaxis: SCDs GI Prophylaxis: Protonix Bowel: N/A Diet: Cardiac Lines: PIV Dispo: Pending SNF placement for rehab Code Status: FULL Patient seen and assessed with attending Dr. Brown and senior resident Dr. Remy (PGY-2) Tyron Chan, PGY-1 Attending Provider Attestation/Addendum I have discussed and was present for the essential components of the history, physical examination, diagnosis, and treatment plan with the resident. I agree with the patient's care as documented by the resident and amended herein by me. Aleks Brown DO. Although this document has been carefully reviewed, there may still be some phonetic and other typographical errors. These errors are purely grammatical due to imperfections in the software program and should not be construed in any way to compromise the substance of the patient's medical care during this visit. Patient seen and evaluated this AM. Patient will need SNF placement, can be discharged once insurance authorization. Colonoscopy negative for any acute bleeding, demonstrated hemorrhoids which were banded, diverticulosis, 1 polyp removed. Hemoglobin stable at 10, no further signs of bleeding. Will replete electrolytes as necessary
--- NOTE | 2024-12-27 12:50 | PC.SS ---
SS met with pt who states he has 1month of chem oral medication. SS has sent inquiry to the local SNF using [facility]. Pt is agreeable to SNF. SS communicated with Marva, Pharmacist who explained pt received 2 months supply 1 month ago of chemo oral medication, Abiraterone. Pt is aware family will have to bring the chemo mediation to SNF. SS provided verbal choices for SNF. Patient's [facility] is [facility] [place]. Aissatou from [facility] is aware.
--- NOTE | 2024-12-27 13:47 | XR_ITS ---
Examination: Duplex scan of the upper extremity, unilateral right Date and time of exam: December 27, 2024 1212 hours INDICATIONS: Swelling and pain beginning 3 days ago Technique: Duplex scan of the extremity veins using B-mode/grayscale imaging and Doppler spectral analysis and color flow Attention is directed to internal echogenicity, compression and augmentation involving these veins, color flow assessment, spectral analysis Findings: Major deep venous structures in the extremity demonstrate normal course and caliber. There is no evidence of deep vein thrombosis. Normal color flow and spectral analysis Impression: Negative for DVT..
--- NOTE | 2024-12-27 15:48 | ESDS_ITS ---
Planned Discharge Date 12/27/24 DS: Providers Provider Date of admission: 12/24/24 13:12 Primary care physician: Alexsander Echavarria MD Admitting Provider: Gasper Bowie MD Attending Provider on Admission: Rashad Brown DO Consults: 12/24/24 10:34 Consult to Gastroenterology Stat Comment: GI bleed Consulting Provider: Moraima Hutton 12/24/24 18:52 Health Equity Referral - Knowledge Deficit Routine Comment: Positive screening for knowledge deficit needs. 12/27/24 09:51 Referral Physical Therapy Stat Comment: Physician Instructions: Attending Provider on DC: Rashad Brown DO Discharging Provider: Tyron Chan DO Anticipated date of discharge: 12/27/24 DS: Diagnosis Problem List Completed Was Problem List Reviewed/Reconciled?: Yes Hospital Course Hospital Course Hospital course: Reason for hospitalization: Summary: This patient is a 64-year-old Yemeni speaking male with a past medical history of hypothyroidism, hypertension, A-fib, and prostate cancer on chemotherapy, who presents to [facility] ED on 12/24 for concerns of shortness of breath with chest pain and generalized weakness. The patient was admitted for management of GI bleed. The patient stated that he has been having episodes of shortness of breath with chest pain and generalized weakness since about a month ago. Episodes would come and go, and patient had previously been evaluated by the guest services coordinator, Dr. Russell, who is currently evaluating the patient and managing his atrial fibrillation, however the patient has not yet followed up with his guest services coordinator in the outpatient setting yet per the patient's daughter. On presentation to [facility] ED on 12/24, the patient had another 1 of these episodes, and was noted to have a low heart rate, soft BP, and required 12 L O2 via oxy mask to maintain O2 saturation at 97%. Patient was given IV fluids, which improved his symptoms. Given his presentation, ED physician was concerned for possible GI bleed, and did FOBT, which was noted to be positive. GI was consulted, and they performed an endoscopy on 12/25, which showed gastritis, and a colonoscopy on 12/26, which showed internal hemorrhoids that were banded. Afterwards, GI recommended no further workup, however patient was noted to be painful, weaker, and had a swollen right upper extremity. Venous duplex ultrasound was negative for DVT, and pain subsided, but patient remained generally weak. Physical therapy evaluated the patient on 12/27, and they recommended rehab at SNF. On 12/27, the patient was medically cleared to be discharged to SNF with further plans for the patient to follow-up with his outpatient guest services coordinator. Discharge Recommendations: - Follow up with PCP within 1 week of discharge - Continue rest of medications as previously prescribed - Return to the ED or call EMS if symptoms return and/or worsen - Increased your Lisinopril dose to 20 mg by mouth daily for high blood pressure - Stop taking ibuprofen as this medication can increase your risk of GI bleed - Please follow up with outpatient guest services coordinator for further workup - Please follow up with outpatient oncologist regarding symptoms while on chemotherapy If you don't have a PCP, you can make an appointment at the [facility]: [address] [facility] [address] [place] [address] Hospital Diagnoses: #GI bleed, possibly lower, resolved #Internal hemorrhoids, banded #Esophagitis #Gastritis #Atrial fibriliation #Pre-syncope #Chest pain, atypical #Aortic aneurysm, ascending aorta, 4.5 cm diameter #Anemia, normocytic #Anemia of chronic disease #Prostate cancer, on chemotherapy, s/p radiation therapy #Primary hypertension #Hypothyroidism #Depression Patient plan of care was discussed with attending physician Dr. Stephanie Chan, PGY-1 Status at Discharge Overall status at discharge: patient is progressing back to baseline Time Spent with Patient Time attestation: Total time spent providing and/or coordinating discharge services: Time spent: Greater than 30 minutes Exam Vital Signs Temp Pulse Resp BP Pulse Ox O2 Del Method O2 Flow Rate 97.8 F 102 H 17 154/89 H 97 Nasal Cannula 3 12/27/24 12:12/27/24 12:12/27/24 12:12/27/24 12:12/27/24 12:12/27/24 12:12/27/24 12:00 Narrative Exam Physical Exam: General: Alert, no acute distress. Skin: Warm, dry, intact. Head: Normocephalic, atraumatic. Eye: Slightly injected conjunctiva, PERRL. Cardiovascular: Regular rate and irregular rhythm, no murmur, +S1/S2. Respiratory: Lungs are clear to auscultation, respirations unlabored, no crackles, no wheezing. Gastrointestinal: Soft, nontender, non-distended. No guarding or rebound tenderness. Extremities: Right arm 1+ non-pitting edema, no cyanosis, no clubbing. Neuro: No focal deficits observed. Conversant, moving all extremities. No overt cerebellar signs/incoordination. Psychiatric: Cooperative, appropriate affect. Discharge Plan Plan Patient Disposition: Xfer Skilled Nsg Fac (SNF) Patient condition on transfer: Stable Care Plan Goals: Increased your Lisinopril dose to 20 mg by mouth daily for high blood pressure Stop taking ibuprofen as this medication can increase your risk of GI bleed Continue all other home medications as prescribed Follow-up with your PCP within 1 week or follow-up at the [facility] [address] [place] [address] If your symptoms worsen or if you develop new chest pain, shortness of breath, dizziness or bleeding - please come back to the ED immediately. Prescriptions/Referrals Prescriptions/Med Rec: New lisinopril 20 mg tablet 20 mg PO QDAY 30 Days Qty: 30 0RF Continued abiraterone 250 mg tablet 250 mg PO QDAY Rx Instructions: take on empty stomach mirtazapine 15 mg tablet 15 mg PO .at bedtime Patient Comments: TAKE 1 TABLET BY MOUTH ONCE AT BEDTIME liothyronine 25 mcg tablet 25 mcg PO QDAY Patient Comments: TAKE 1 TABLET BY MOUTH ON EMPTY STOMACH ONCE EVERY DAY levothyroxine 125 mcg tablet 125 mcg PO QDAY Patient Comments: TAKE 1 CAPSULE BY MOUTH EVERY DAY Eliquis 5 mg tablet 5 mg PO BID Patient Comments: TAKE 1 TABLET BY MOUTH TWICE A DAY tamsulosin 0.4 mg capsule 0.4 mg PO .at bedtime Patient Comments: TAKE 1 CAPSULE BY MOUTH AT BEDTIME metoprolol succinate 50 mg tablet extended release 24 hr 50 mg PO QDAY Discontinued Levothyroxine * (SYNTHROID *) 50 MCG tablet 50 mcg PO QDAY PRN (Reason: HYPOTHYROID) Qty: 30 ibuprofen 400 mg tablet 400 mg PO .as needed Patient Comments: TAKE 1 TABLET BY MOUTH 3 TIMES A DAY NEEDED WITH FOOD OR MILK levothyroxine 112 mcg tablet 112 mcg PO QDAY Patient Comments: TAKE 1 TABLET BY MOUTH EVERY DAY IN THE MORNING ON EMPTY STOMACH lisinopril 10 mg tablet 10 mg PO QDAY Patient Comments: TAKE 1 TABLET BY MOUTH EVERY DAY Referrals: Alexsander Echavarria MD [Primary Care Provider, Family Practice] Patient/Caregiver Discharge Instructions Education Materials: Bleeding Gastrointestinal, Anatomy of the Digestive System Print Language: Yemeni Stand Alone Forms: [facility] Award Info., Patient Portal Info Letter Discharge Order Discharge Orders: Discharge (Routine); Ordered 12/27/24 Ordered By: Chirag Remy Quality Discharge Quality Measures VTE prophylaxis MD Attestestation MD Attestation I have discussed and was present for the essential components of the discharge history, physical examination, diagnosis, and discharge treatment plan with the resident. I agree with the patient's discharge care as documented by the resident and amended herein by me. Aleks Brown DO. The patient understood all discharge instructions, all questions were answered satisfactorily. The patient was instructed to return to the Emergency Department is symptoms worsened or persisted. Although this document has been carefully reviewed, there may still be some phonetic and other typographical errors. These errors are purely grammatical due to imperfections in the software program and should not be construed in any way to compromise the substance of the patient's medical care during this visit.
--- NOTE | 2024-12-27 16:52 | PC.RT ---
SS attempted to setup gurney transportation with 2 [employer] representatives, Kym and Loraine but was unsuccessful. Both [employer] representatives were unable to find pt in their system. SS has sent JCARLOS, patient's facesheet, and ambulance form to [facility] for transportation at 6:30 to [facility]. SS has spoken to at [place] from [facility] who has setup transportartion. Aissatou from [facility] is aware, son Ney is aware. Bedside nurse, Niecy is aware. Carmella SAMUELS is aware. PASRR assessment has been completed and closed and sent to [facility] using File exchange.
--- NOTE | 2024-12-27 18:20 | PC.NURSE ---
Called report to SNF nurse Ranjan discharge instructions given, packet being sent with pt.
--- NOTE | 2024-12-27 20:44 | ESPR_ITS ---
Documentation for date of: 12/27/24 Subjective Subjective Interval history: Late entry for the note Hemoglobin hematocrit 10.2 and 30.7 Status post band ligation of the large internal hemorrhoids and also removal of rectal polyp No further GI workup necessary Patient can be followed upon discharge by the PCP Exam Vital Signs Temp Pulse Resp BP Pulse Ox O2 Del Method O2 Flow Rate 98.9 F 79 20 114/75 94 L Nasal Cannula 3 12/27/24 18:30 12/27/24 18:30 12/27/24 18:30 12/27/24 18:30 12/27/24 18:30 12/27/24 18:30 12/27/24 18:30 Objective Labs 12/27/24 05:12 12/27/24 05:12 Labs: Laboratory Results - last 24 hr 12/27/24 05:12 WBC 7.1 RBC 3.43 L Hgb 10.2 L Hct 30.7 L MCV 90 MCH 29.7 MCHC 33.2 RDW Std Deviation 44.5 H Plt Count 284 D Neut % (Auto) 82 H Lymph % (Auto) 8 L [place] % (Auto) 9 Eos % (Auto) 0 Baso % (Auto) 0 Neut # (Auto) 5.8 Lymph # (Auto) 0.6 L [place] # (Auto) 0.7 Eos # (Auto) 0.0 Baso # (Auto) 0.0 Immature Gran # (Auto) 0.02 H Absolute Nucleated RBC 0.00 Immature Gran % 0 Nucleated RBC % 0 Sodium 142 Potassium 3.1 L Chloride 103 Carbon Dioxide 28.6 Anion Gap 10 BUN < 5 L Creatinine 0.6 Estim Creat Clear Calc 131.6 eGFR > 60 BUN/Creatinine Ratio 8 L Glucose 115 H Calculated Osmolality 281 Calcium 9.2 Corrected Calcium 9.4 Total Bilirubin 1.3 H AST 14 ALT 8 L Alkaline Phosphatase 75 Total Protein 6.4 Albumin 3.7 Globulin 2.7 Albumin/Globulin Ratio 1.4 Impressions Impression: Internal hemorrhoids status post band ligation Gastritis Okay to discharge to be followed by the PCP ABG Interpretation ABG results: 12/24/24 08:30 VBG pH 7.41 VBG pCO2 46 VBG pO2 36 VBG Base Excess 4 H Assessment & Plan A&P Narrative # FOBT positive with acute posthemorrhagic anemia # Bradycardia requiring atropine in the ER # Hypotension resolved after IV fluids Plan Clear liquid diet IV Protonix Let the patient stabilize for the next 24 hours then I will do the endoscopy tomorrow afternoon Clear liquid diet till 9 AM tomorrow then n.p.o. Serial CBC Transfuse if the hemoglobin drops below 7 g Will follow the patient Other medical problems include Prostate carcinoma on chemotherapy Atrial fibrillation Hypothyroidism Thank you very much for the opportunity to participate in the care of this patient Time Spent With Patient Time: Total time spent is greater than 50% in coordination of care (as documented) at patient's floor/unit and/or counseling patient:
== END 2024-12-27 18:33 | disposition skilled nursing facility (03) | DRG 347 ==
LOC: SERX 11:20 → SERHOLD 14:20 → S2NX 18:06
PROVIDERS: Specialist; Admitting Provider Student in an Organized Health Care Education/Training Program; Emergency Provider Emergency Medicine; PCP Family Medicine; Visit Provider Student in an Organized Health Care Education/Training Program
PROC: 0DJ08ZZ Inspection of Upper Intestinal Tract, Via Natural or Artificial Opening Endoscopic (ICD-10-PCS; CPT 43239; principal; 2024-12-25 19:00)
PROC: 0DJD8ZZ Inspection of Lower Intestinal Tract, Via Natural or Artificial Opening Endoscopic (ICD-10-PCS; CPT 45378; principal; 2024-12-26 20:00)
DX: K20.91 Esophagitis, unspecified with bleeding (principal); K29.71 Gastritis, unspecified, with bleeding; D62 Acute posthemorrhagic anemia; I48.20 Chronic atrial fibrillation, unspecified; E03.9 Hypothyroidism, unspecified; I10 Essential (primary) hypertension; F32.A Depression, unspecified; E78.5 Hyperlipidemia, unspecified; I71.21 Aneurysm of the ascending aorta, without rupture; C61 Malignant neoplasm of prostate; R00.1 Bradycardia, unspecified; I95.9 Hypotension, unspecified; D63.8 Anemia in other chronic diseases classified elsewhere; K59.00 Constipation, unspecified; K64.8 Other hemorrhoids; Z59.71 Insufficient health insurance coverage; Z60.3 Acculturation difficulty; Z79.899 Other long term (current) drug therapy; Z79.01 Long term (current) use of anticoagulants; Z92.3 Personal history of irradiation; Z85.46 Personal history of malignant neoplasm of prostate
CPT/HCPCS: 36415; 70450; 71045; 71275; 74174; 80053; 80061; 80329; 81001; 82140; 82248; 82607; 82728; 82746; 82803; 83036; 83540; 83550; 83605; 83735; 83880; 84100; 84145; 84436; 84439; 84443; 84484; 85025; 85046; 85610; 85730; 86850; 86900; 86901; 87040; 87081; 87400; 87811; 93005; 93970; 93971; 96365; 96366; 96375; 96376; 97162; 99284; A4649; J0360; J0696; J1200; J2250; J2470; J3010; J3475; J3480; J3490; J7120; J7999; Q9967; A9270; G0480

== ENCOUNTER 2025-01-10 11:35 | Inpatient (IN) | payer MEDICARE, MEDICAID, SELFPAY ==
[2025-01-10] VITALS (8 sets, daily range): BP systolic 121–198; BP diastolic 73–112; PULSE 62–106; RESP 15–97; TEMP 35.9–37.5; O2SAT 93–98; BMI 43.9
--- NOTE | 2025-01-10 | XR_ITS ---
Examinations: MRI Brain without intravenous contrast. MRA brain without intravenous contrast. MRA carotids without intravenous contrast 3-D vascular reconstructions Date and time of exam: January 10, 2025, 1801 hours Indication: Stroke alert today, onset right-sided body weakness and dysarthria Technique: Multiple axial and sagittal images of the brain have been obtained MRA brain carotid images without contrast obtained, including 3-D postprocessing, vascular maximum intensity projection images Findings: Sell[place] is not enlarged. The optic chiasm and infundibular stalk are not remarkable. Prepontine and interpeduncular cisterns are not enlarged. No localized enlargement of the medulla or willie. Fourth ventricle and cerebellar tonsils normal in position. Subacute hemorrhage is not seen. Fourth ventricle is midline. Mass in the cerebellopontine angle region is not evident. 7th and 8th nerve complexes exhibits symmetry. Globes are symmetrical with no retro-orbital mass. Increased white matter signal moderate to prominent Diffusion-weighted images demonstrate no focus of restricted diffusion Mass-effect upon the ventricular system is not identified. MRA carotid images no gross carotid stenoses. MRA brain images no large vessel occlusions Impression: Negative for acute hemorrhage, mass effect or midline shift No acute infarct Moderate to prominent chronic microvascular white matter change
--- NOTE | 2025-01-10 11:37 | XR_ITS ---
Examination: CTA carotids with intravenous contrast CTA brain, head with intravenous contrast. 2-D sagittal, coronal reconstructions. 3-D reconstructions. Exam date and time: January 10, 2025, 1151 hours INDICATIONS: Stroke alert, onset right-sided body weakness slurred speech beginning 1 hour ago CTDI: vol (mGy) 34.4 DLP: (mGycm) 504 Technique: Multiple CTA axial brain, head carotid images post intravenous contrast injection 75 cc, Isovue-370. 2-D sagittal, coronal reconstructions. 3-D reconstructions, 3-D post processing including vascular maximum intensity projection images. Low dose protocols were performed. One or more of the following dose reduction techniques were used; automated exposure control, adjustment of the mA and/or KV according to patient size, use of iterative reconstruction technique. Findings: Heavy calcification right carotid bifurcation, 40 to 60% stenosis right carotid bifurcation and origin right internal carotid artery Moderate calcification left carotid bifurcation 10 to 30% stenosis left carotid bifurcation origin left internal carotid artery Codominant small vertebral arteries in the neck Intracranial vertebral arteries basilar artery and posterior cerebral artery branches fill with no large vessel occlusions Juxtasellar supraclinoid portions internal carotid arteries intact M1 segments middle cerebral arteries middle cerebral artery trifurcation vessels anterior cerebral arteries show no large vessel occlusions IMPRESSION: 40-60 % stenosis right carotid bifurcation origin right internal carotid artery 10 to 30% stenosis left carotid bifurcation origin left internal carotid artery No cerebral large vessel arterial occlusions or thrombus
--- NOTE | 2025-01-10 11:37 | XR_ITS ---
Examination: CT brain head without contrast. 2-D sagittal coronal reconstructions Date and time of exam: January 10, 2025, 1142 hours INDICATIONS: Stroke alert, onset right-sided body weakness slurred speech beginning 1 hour ago CTDI: vol (mGy): 59.8 DLP: (mGycm): 1249 Technique: Multiple CT axial sections of the brain have been obtained, 5 mm slice thickness. Contrast has not been administered. 2-D sagittal, coronal reconstructions have been obtained Low dose protocols were performed. One or more of the following dose reduction techniques were used; automated exposure control, adjustment of the mA and/or KV according to patient size, use of iterative reconstruction technique. Findings: No significant ventricular enlargement. Intra-axial or extra-axial hemorrhage density is not seen. No mass effect or midline shift Basal cisterns are not remarkable. Fourth ventricle is midline. Cranial vault intact. Old fracture medial wall right orbit Impression: Negative for acute hemorrhage, mass effect or midline shift
--- NOTE | 2025-01-10 12:02 | PD.EDWEAK ---
ED Weakness RME/HPI General Chief complaint: Weakness Stated complaint: POSSIBLE STROKE Time Seen by Provider: 01/10/25 11:37 Arrival date/time: 01/10/25 11:35 Limitations: no limitations RME / HPI RME / HPI Narrative: 65 year old male with history of atrial fibrillation on Eliquis, hypertension, hypothyroidism, prostate cancer (completed chemotherapy ~ 1 month ago) presents to the ED BIB from [facility] for evaluation of right-sided weakness beginning at 10:30am today. Per medics, [place] staff reported at baseline the patient is able to stand and transfer self from bed to wheelchair. However, noted patient was having difficulty today and required assistance. Per medics report, on scene patient had right-sided weakness, right facial droop, and slurred speech. GFAST of 3. Prehospital BS 117. In the ED, patient has no specific complaints. Does mention he was recently admitted at [facility] for a blood infection and discharged 3 days ago. Related Data Home Medications ?Medication ?Instructions ?Recorded ?Confirmed abiraterone 250 mg tablet 250 mg PO QDAY 12/24/24 12/24/24 apixaban 5 mg tablet (Eliquis) 5 mg PO BID 12/24/24 12/24/24 levothyroxine 125 mcg tablet 125 mcg PO QDAY 12/24/24 12/24/24 liothyronine 25 mcg tablet 25 mcg PO QDAY 12/24/24 12/24/24 metoprolol succinate 50 mg 50 mg PO QDAY 12/24/24 12/24/24 tablet,extended release 24 hr mirtazapine 15 mg tablet 15 mg PO .at bedtime 12/24/24 12/24/24 tamsulosin 0.4 mg capsule 0.4 mg PO .at bedtime 12/24/24 12/24/24 Previous Rx's ?Medication ?Instructions ?Recorded lisinopril 20 mg tablet 20 mg PO QDAY 1 month #30 tabs 12/27/24 Allergies Allergy/AdvReac Type Severity Reaction Status Date / Time No Known Allergies Allergy Verified 01/10/25 12:15 Review of Systems Review of Systems Systems Reviewed: All systems reviewed, normal except as documented Past Medical History Past Medical History CARDIAC: Positive Cardiac Disorders, Atrial Fibrillation and Hypertension GENITOURINARY: Positive Prostate Cancer ENDOCRINE: Positive Endocrine Disorders and Hypothyroidism OTHER HISTORY: Positive Chemotherapy, Cancer and Prostate Cancer Family History FAMILY HISTORY: Positive Family Cardiac Disorders (Mother HTN) and Family Cancer (Mother Breast Cancer, Brother Prostate Cancer) Surgical History SURGICAL: Positive Tonsillectomy Social History SMOKING STATUS: Never smoker ED Exam General Limitations: Present no limitations General appearance: Present alert and in no apparent distress Head Head exam: Present atraumatic Eye Eye exam: Present normal appearance, PERRL and EOMI ENT ENT exam: Present normal exam, normal oropharynx and mucous membranes moist Neck Neck exam: Present normal inspection, full ROM and trachea midline Chest Chest inspection: Present normal inspection and symmetric chest wall rise Respiratory Respiratory exam: Present normal lung sounds bilaterally Cardiovascular Cardiovascular exam: Present regular rate, normal rhythm and normal heart sounds Abdominal Exam Abdominal exam: Present soft and normal bowel sounds Extremities Exam Extremities exam: Present normal inspection Neurological Exam Neurological exam: Present alert, oriented X3, CN II-XII intact and other (Mild weakness to the right arm and right leg, 4/5 strength. Left upper and left lower extremities 5/5 stregth. Right arm and right leg drift. Mild right facial droop. ) Psychiatric Psychiatric exam: Present normal affect and normal mood Skin Skin exam: Present warm, dry, intact and normal color Course Quality Measures Suspected type of Stroke: Non Acute Last known well (date): 01/10/25 Last known well (time): 10:30 Tenecteplase given: Reason(s) TPA not given: Use of NOAC (eliquis, xarelto, or pradaxa) (and recent GI bleed (< 30 days ago) ) not given stroke Orders Category Date Time Status Bedside Blood Glucose NOW Care 01/10/25 11:37 Active Manager Of Supply Chain NOW Care 01/10/25 11:37 Active Continuous Pulse Oximetry NOW Care 01/10/25 11:37 Completed EKG (ED ONLY) *Do not use* NOW Care 01/10/25 12:14 Completed Insert IV NOW Care 01/10/25 11:37 Active NIH Stroke Scale now Care 01/10/25 11:37 Active NPO NOW Care 01/10/25 11:37 Active Neuro Check Q15MIN Care 01/10/25 11:37 Active Nurse Swallow Screen x1 Care 01/10/25 11:37 Active Consult to Neurology / Tele-Neurology Routine Cons 01/10/25 11:[address] angio stroke protocol Stat Exams 01/10/25 11:[address] stroke protocol Stat Exams 01/10/25 11:37 Completed EKG (ED Only) Stat Exams 01/10/25 12:14 Draft Alcohol, Blood Medical Stat Lab 01/10/25 11:50 Completed B-Type Natriuretic Peptide Stat Lab 01/10/25 11:50 Completed CBC Stat Lab 01/10/25 11:50 Completed Comprehensive Metabolic Panel Stat Lab 01/10/25 11:50 Completed Drug Screen,Urine Stat Lab 01/10/25 12:50 Completed Magnesium Stat Lab 01/10/25 11:50 Completed Partial Thromboplastin Time Stat Lab 01/10/25 11:50 Completed Prothrombin Time with INR Stat Lab 01/10/25 11:50 Completed Troponin I Stat Lab 01/10/25 11:50 Completed Urinalysis Stat Lab 01/10/25 12:50 Received Urine Culture Stat Lab 01/10/25 12:50 Received Labetalol IV [Trandate IV] Med 01/10/25 13:11 Discontinued 20 mg IVP X1 ONE Sodium Chloride 0.9% 1000 ml [Ns] 1,000 ml Med 01/10/25 11:45 Active IV 50 mls/hr Oxygen Delivery NOW RT 01/10/25 11:37 Active Vital Signs Vital signs: Vital Signs Pulse Rate 62 01/10/25 11:50 Weakness MDM Narrative MDM Narrative:: IRaquel am scribing for and in the presence of Dr. Shirley. Patient data External records reviewed:: [facility] previous records, EMS form and Alf records (I reviewed pmhx and medication list from [facility] ) Clinical information provided by:: patient and EMS Social determinants that could affect healthcare access:: housing ([facility] patient) Patient has the following chronic illnesses:: atrial fibrillation on Eliquis, hypertension, hypothyroidism, prostate cancer (completed chemotherapy ~ 1 month ago), recent GI bleed? How is presenting disease/condition affected by chronic disease/condition?: exacerbated by Evaluation data The following diagnostics were reviewed and interpreted by me:: lab results, radiology exam(s) and EKG tracing(s) (EKG @ 12:15p. NSR, rate 68, no STEMI. ) Lab and/or radiology exams considered but not ordered:: None Interpretation Summary: Ordering Physician: Juanito Shirley MD Date of Service: 01/10/25 Procedure(s): CT stroke protocol Accession Number(s): [id number] cc: Juanito Shirley MD; Pacheco Delong MD~ Examination: CT brain head without contrast. 2-D sagittal coronal reconstructions Date and time of exam: January 10, 2025, 1142 hours INDICATIONS: Stroke alert, onset right-sided body weakness slurred speech beginning 1 hour ago CTDI: vol (mGy): 59.8 DLP: (mGycm): 1249 Technique: Multiple CT axial sections of the brain have been obtained, 5 mm slice thickness. Contrast has not been administered. 2-D sagittal, coronal reconstructions have been obtained Low dose protocols were performed. One or more of the following dose reduction techniques were used; automated exposure control, adjustment of the mA and/or KV according to patient size, use of iterative reconstruction technique. Findings: No significant ventricular enlargement. Intra-axial or extra-axial hemorrhage density is not seen. No mass effect or midline shift Basal cisterns are not remarkable. Fourth ventricle is midline. Cranial vault intact. Old fracture medial wall right orbit Impression: Negative for acute hemorrhage, mass effect or midline shift Dictated By: Pacheco Delong MD Signed By: <Electronically signed by Pacheco Delong MD in [place]> 01/10/25 1159 Ordering Physician: Juanito Shirley MD Date of Service: 01/10/25 Procedure(s): CT angio stroke protocol Accession Number(s): [id number] cc: Juanito Shirley MD; Pacheco Delong MD~ Examination: CTA carotids with intravenous contrast CTA brain, head with intravenous contrast. 2-D sagittal, coronal reconstructions. 3-D reconstructions. Exam date and time: January 10, 2025, 1151 hours INDICATIONS: Stroke alert, onset right-sided body weakness slurred speech beginning 1 hour ago CTDI: vol (mGy) 34.4 DLP: (mGycm) 504 Technique: Multiple CTA axial brain, head carotid images post intravenous contrast injection 75 cc, Isovue-370. 2-D sagittal, coronal reconstructions. 3-D reconstructions, 3-D post processing including vascular maximum intensity projection images. Low dose protocols were performed. One or more of the following dose reduction techniques were used; automated exposure control, adjustment of the mA and/or KV according to patient size, use of iterative reconstruction technique. Findings: Heavy calcification right carotid bifurcation, 40 to 60% stenosis right carotid bifurcation and origin right internal carotid artery Moderate calcification left carotid bifurcation 10 to 30% stenosis left carotid bifurcation origin left internal carotid artery Codominant small vertebral arteries in the neck Intracranial vertebral arteries basilar artery and posterior cerebral artery branches fill with no large vessel occlusions Juxtasellar supraclinoid portions internal carotid arteries intact M1 segments middle cerebral arteries middle cerebral artery trifurcation vessels anterior cerebral arteries show no large vessel occlusions IMPRESSION: 40-60 % stenosis right carotid bifurcation origin right internal carotid artery 10 to 30% stenosis left carotid bifurcation origin left internal carotid artery No cerebral large vessel arterial occlusions or thrombus Dictated By: Pacheco Delong MD Signed By: <Electronically signed by Pacheco Delong MD in [place]> 01/10/25 1225 Medications / Prescriptions Medications or Prescriptions considered but not ordered:: None Medication administrations:: Medication Administration History Sodium Chloride (Ns) 1,000 mls @ 50 mls/hr IV .Q20H JALEN Stop: 02/09/25 11:44 Last Admin: 01/10/25 12:38 Dose: 50 mls/hr Documented By: VL Discontinued Medications Labetalol HCl (Labetalol Inj 5 Mg/Ml Vial 20 Ml) 20 mg IVP X1 ONE Stop: 01/10/25 13:12 Last Admin: 01/10/25 13:24 Dose: 20 mg Documented By: VL See above Consultations Consultation(s) initiated? (list below): Yes Consultation #1 (Physician, Specialty, Details): I spoke with teleneurologist Dr. Butler. States patient is not a TNK candidate at this time. Hx of recent GI bleed (~ 21 days ago) and current use of Eliquis. Time: 12:14 Consultation #2 (Physician, Specialty, Details): I spoke with hospitalist team C for admission. Time: 13:30 Diagnosis Weakness Differential Diagnosis: acute myocardial infarction, anemia, hypoglycemia, hypothyroidism, sepsis and dehydration Most likely diagnosis given after review of the tests above:: CVA Right sided weakness Right facial droop Recent GI bleed hx of Atrial fibrillation Admission Indicated Admission indicated?: indicated Admission Request Was there a request for admission?: Yes Admission Attestation Admission request attestation: Discussed case with [] from Hospitalist service regarding admission. Discussed patients ED course, exam findings, labs, and radiology results. The Hospitalist [agrees,declines] to accept the patient for admission. Disposition Plan Disposition Plan: Admit Critical Care Time Critical Care Time Critical Care Time: Yes Total Critical Care Time (min.): 60 Attestation: The high probability of sudden, clinically significant deterioration in the patient's condition required the highest level of my preparedness to intervene urgently. The services I provided to this patient were to treat and/or prevent clinically significant deterioration. Services included the following: chart data review, reviewing nursing notes and/or old charts, documentation time, quality improvement consultant collaboration regarding findings and treatment options, medication orders and management, direct patient care, vital sign assessments and ordering, interpreting and reviewing diagnostic studies and lab tests. Aggregate critical care time includes only time during which I was engaged in work directly related to the patient's care, as described above, whether at bedside or elsewhere in the Emergency Department. It did not include time spent performing other reported procedures or the services of residents, students, nurses or physician assistants. Discharge Plan Plan Patient Disposition: Admit Acute Care w/in Hospital Prescriptions/Referrals Prescriptions/Med Rec: No Action abiraterone 250 mg tablet 250 mg PO QDAY Rx Instructions: take on empty stomach mirtazapine 15 mg tablet 15 mg PO .at bedtime Patient Comments: TAKE 1 TABLET BY MOUTH ONCE AT BEDTIME liothyronine 25 mcg tablet 25 mcg PO QDAY Patient Comments: TAKE 1 TABLET BY MOUTH ON EMPTY STOMACH ONCE EVERY DAY levothyroxine 125 mcg tablet 125 mcg PO QDAY Patient Comments: TAKE 1 CAPSULE BY MOUTH EVERY DAY Eliquis 5 mg tablet 5 mg PO BID Patient Comments: TAKE 1 TABLET BY MOUTH TWICE A DAY tamsulosin 0.4 mg capsule 0.4 mg PO .at bedtime Patient Comments: TAKE 1 CAPSULE BY MOUTH AT BEDTIME metoprolol succinate 50 mg tablet extended release 24 hr 50 mg PO QDAY lisinopril 20 mg tablet 20 mg PO QDAY 30 Days Qty: 30 0RF Referrals: Alexsander Echavarria MD [Primary Care Provider, Family Practice] - In 1 week Problem List Clinical Impression: CVA (cerebrovascular accident), Right sided weakness, History of GI bleed, History of atrial fibrillation Patient/Caregiver Discharge Instructions Print Language: Citizen Of [place] Stand Alone Forms: [employer] Award Info., Patient Portal Info Letter
[2025-01-10 12:07] LABS: Basophils # (Auto) 0.0 Thou/mm3 (0.0-0.2); Basophils % (Auto) 0 % (0-2.5); Eosinophils # (Auto) 0.1 Thou/mm3 (0.0-0.5); Eosinophils % (Auto) 1 % (0-10); Hematocrit 33.0 % (41.0-53.0); Hemoglobin 10.6 g/dL (13.5-16.0); Immature Granulocytes Auto 0.09 Thou/mm3 (0.00-0.00); Lymphocytes # (Auto) 0.9 Thou/mm3 (1.0-4.8); Lymphocytes % (Auto) 11 % (10-50); Mean Corpuscular HGB Conc 32.1 g/dl (31.0-37.0); Mean Corpuscular Hemoglobin 28.3 pg (25.0-35.0); Mean Corpuscular Volume 88 fL (80-100); Monocytes # (Auto) 0.6 Thou/mm3 (0.0-0.8); Monocytes % (Auto) 8 % (0-12); Neutrophils # (Auto) 6.4 Thou/mm3 (1.8-7.7); Neutrophils % (Auto) 79 % (37-80); Nucleated Red Blood Cell # 0.00 Thou/mm3 (0.00-0.00); Nucleated Red Blood Cell % 0 /100 WBC (0); Platelet Count 435 Thou/mm3 (140-440); RDW Standard Deviation 46.6 fL (35.1-43.9); Red Blood Count 3.75 Miln/mm3 (4.50-5.90); White Blood Count 8.1 Thou/mm3 (3.8-10.6)
--- NOTE | 2025-01-10 12:14 | EKG_ITS ---
[facility] Test Date: 2025-01-10 Pat Name: SUSHILA COLE Department: Room: - Gender: Male [employer]: : 1960 Requested By: Juanito Reynoso Order Number: [id number] Reading MD: Juanito Reynoso Measurements Intervals [place] Rate: 68 P: 25 [place]: 147 QRS: 23 QRSD: 96 T: 32 QT: 428 QTc: 455 Interpretive Statements SINUS RHYTHM Compared to ECG 12/24/2024 08:21:39 No significant changes /[id number]/[id number]
[2025-01-10 12:21] LABS: INR 1.1 (0.9-1.3); Partial Thromboplastin Time 30.5 Seconds (22.0-36.0); Prothrombin Time 12.0 Seconds (9.0-12.2)
--- NOTE | 2025-01-10 12:27 | ESCONSULT_ITS ---
Tele Neuro Consultation Consultation Date 01/10/25 Most Recent Vital Signs Last Vital Signs Temp 99.5 F 01/10/25 12:19 Pulse 68 01/10/25 12:19 Resp 19 01/10/25 12:19 BP 152/106 H 01/10/25 12:19 Pulse Ox 98 01/10/25 12:19 O2 Del Method Room Air 01/10/25 12:19 Laboratory-Coagulation Panel PT 12.0 Seconds (9.0-12.2) 01/10/25 11:50 INR 1.1 (0.9-1.3) 01/10/25 11:50 APTT 30.5 Seconds (22.0-36.0) 01/10/25 11:50 Consultation Narrative [facility] TeleNeurology Consult Services Patient Name:???Ebenezer Portillo Date of :???1960 Identification Number:??? Date of Service:???01/10/2025 11:32:28 Diagnosis:?I63.89 - Cerebrovascular accident (CVA) due to other mechanism ([facility]) Impression: ?65-year-old man with hypertension, prostate cancer, hypothyroidism, A-fib (supposed be on Eliquis, cannot confirm if he is still receiving it at this time), admission near the end of December for GI bleed, [facility] with concerns for right sided weakness and dysarthria, although patient reports more of a generalized weakness as well as chest pain, reportedly last known normal 10:30 AM. On examination, NIH stroke scale is a 3 for mild right lower facial droop, as well as mild right arm and right leg drift. Noncontrast head CT did not show acute abnormalities. Given the fact the patient has had GI bleed within the past 21 days, this would be an absolute contraindication to thrombolytic. CT angiogram of the head/neck on my review does not show evidence of an LVO. ? ?This potentially new right sided weakness does raise concern for an acute stroke, for which patient may be at higher risk especially if he is off Eliquis. Also consider underlying metabolic/infectious etiologies. Recommend admission for monitoring and further evaluation. Our recommendations are outlined below. Recommendations: ? Stroke/Telemetry Floor ? Neuro Checks (Q4) ? Bedside Swallow Eval ? DVT Prophylaxis ? IV Fluids, Normal Saline ? Head of Bed 30 Degrees ? Euglycemia and Avoid Hyperthermia (PRN Acetaminophen) ? Hold Anticoagulation for Now ? Initiate or continue Aspirin 81 MG daily ? Antihypertensives PRN if Blood pressure is greater than 220/120 or there is a concern for End organ damage/contraindications for permissive HTN. If blood pressure is greater than 220/120 give labetalol PO or IV or Vasotec IV with a goal of 15% reduction in BP during the first 24 hours. ?-MRI brain w/o contrast ?-TTE ?-telemetry monitoring ?-metabolic/infectious work-up ?-if MRI brain negative for stroke, resume Eliquis. If shows small stroke, would resume Eliquis in 72 hours. Sign Out: ? Discussed with Emergency Department Provider Advanced Imaging:Advanced imaging has been ordered. Results pending. Metrics: Last Known Well: 01/10/2025 10:30:00 Dispatch Time: 01/10/2025 11:32:28 Arrival Time: 01/10/2025 11:35:00 Initial Response Time: 01/10/2025 11:35:44Symptoms: right-sided weakness, dysarthria. Initial patient interaction: 01/10/2025 11:56:36 NIHSS Assessment Completed: 01/10/2025 12:07:00Patient is not a candidate for Thrombolytic. Thrombolytic Medical Decision: 01/10/2025 12:08:45Patient was not deemed candidate for Thrombolytic because of following reasons: Recent gastrointestinal or urinary tract hemorrhage (within previous 21 days) . Use of NOAC in last [address] Head: I personally reviewed all the CT images that were available to me and it showed: no acute intracranial abnormalities Primary Provider Notified of Diagnostic Impression and Management Plan on: 01/10/2025 12:15:56 History of Present Illness:Patient is a 65 year old Male. Patient was brought by EMS for symptoms of right-sided weakness, dysarthria. 65 years old patient presented with acute onset of right-sided weakness that began at approximately 10:30 AM today after being transferred from [facility]. The patient reports that he started experiencing chest pain about an hour before EMS arrived. He states that he feels generalized weakness, though he was observed to have right-sided weakness by others. The patient has been wheelchair bound but is usually able to transfer himself independently; however, today he was unable to complete this task. Concern was also raised for dysarthria. According to family members who arrived at the facility, these symptoms were not normal for the patient. The patient was recently discharged from another hospital approximately three days ago, unclear as to the reason for admission. Additionally, in end of December patient had hypotension and anemia, diagnosed with a GI bleed related to internal hemorrhoids, which were subsequently ligated. GI had cleared patient to resume Eliquis, although unclear if he is still getting it at this time. ? Past Medical History: ?Hypertension ?Atrial Fibrillation Other PMH:? prostate cancer on chemo; hypothyroidism; admitted for GI bleed end of December, from internal hemorrhoids Medications: Anticoagulant use:??Yes?Eliquis No Antiplatelet use Reviewed EMR for current medications Allergies:? Reviewed Social History: Smoking: Former Alcohol Use: Former Family History: There is no family history of premature cerebrovascular disease pertinent to this consultation ROS : 14 Points Review of Systems was performed and was negative except mentioned in HPI. Past Surgical History: There Is No Surgical History Contributory To Today?s Visit ? Examination: BP(152/106),?Pulse(68), 1A: Level of Consciousness - Alert; keenly responsive?+ 0 1B: Ask Month and Age - Both Questions Right?+ 0 1C: Blink Eyes & Squeeze Hands - Performs Both Tasks?+ 0 2: Test Horizontal Extraocular Movements - Normal?+ 0 3: Test Visual Dubon - No Visual Loss?+ 0 4: Test Facial Palsy (Use Grimace if Obtunded) - Minor paralysis (flat nasolabial fold, smile asymmetry)?+ 1 5A: Test Left Arm Motor Drift - No Drift for 10 Seconds?+ 0 5B: Test Right Arm Motor Drift - Drift, but doesn't hit bed?+ 1 6A: Test Left Leg Motor Drift - No Drift for 5 Seconds?+ 0 6B: Test Right Leg Motor Drift - Drift, but doesn't hit bed?+ 1 7: Test Limb Ataxia (FNF/Heel-Hilario) - No Ataxia?+ 0 8: Test Sensation - Normal; No sensory loss?+ 0 9: Test Language/Aphasia - Normal; No aphasia?+ 0 10: Test Dysarthria - Normal?+ 0 11: Test Extinction/Inattention - No abnormality?+ 0 NIHSS Score:?3 NIHSS Free Text :?mild right lower facial asymmetry Pre-Morbid Modified [place] Scale: 4 Points = Moderately severe disability; unable to walk and attend to bodily needs without assistance Spoke with :?Dr. Shirley This consult was conducted in real time using interactive audio and video technology. Patient was informed of the technology being used for this visit and agreed to proceed. Patient located in hospital and provider located at home/office setting. Patient is being evaluated for possible acute neurologic impairment and high probability of imminent or life-threatening deterioration. I spent total of 52 minutes providing care to this patient, including time for face to face visit via telemedicine, review of medical records, imaging studies and discussion of findings with providers, the patient and/or family. Dr Jhoan Butler [facility] For Inpatient follow-up with [facility] physician please call [facility] at . As we are not an outpatient service for any post hospital discharge needs please contact the hospital for assistance. If you have any questions for the [facility] physicians or need to reconsult for clinical or diagnostic changes please contact us via [facility] at . Signature :?Jhoan Butler ?
[2025-01-10 12:28] LABS: Alanine Aminotransferase 27 U/L (10-49); Albumin, Serum 4.1 gm/dL (3.4-4.8); Albumin/Globulin Ratio 1.3 (1.2-2.2); Alcohol, Blood Medical < 3.0 mg/dL (0-10.0); Alkaline Phosphatase 84 U/L (46-116); Anion Gap 11 (7-16); Aspartate Amino Transferase 21 U/L (0-34); BUN/Creatinine Ratio 13 Ratio (12-20); Bilirubin,Total 0.6 mg/dL (0.3-1.2); Blood Urea Nitrogen 9 mg/dL (9-23); Calcium 9.7 mg/dL (8.3-10.6); Calcium (Corrected) 9.7 mg/dL (8.5-10.1); Carbon Dioxide 28.4 mMol/L (20.0-31.0); Chloride 103 mMol/L (98-107); Creatinine (Component) 0.7 mg/dL (0.6-1.3); Estimated Creatinine Clearance 110.5 mL/min (>60); Globulin 3.2 gm/dL (2.3-3.5); Glucose 112 mg/dL (74-106); Magnesium 1.9 mg/dL (1.6-2.6); Osmolality,Calculated 282 (275-295); Potassium 4.0 mMol/L (3.4-5.1); Sodium 142 mMol/L (136-145); Total Protein 7.3 gm/dL (5.7-8.2); Troponin I < 0.002 ng/mL (0.0-0.045); eGFR > 60 See Note
[2025-01-10 12:37] LABS: B-Type Natriuretic Peptide 25 pg/mL (0-100)
[2025-01-10] MEDS: SODIUM CHLORIDE 0.9% 1000 ML 1,000 ML 50 ML IV (12:38)
--- NOTE | 2025-01-10 12:57 | PC.NURSE ---
PATIENT WAS BIBA TO ED FROM [facility]. STROKE ALERT CALLED AT 1131. PATIENT WAS REPORTED BY FAMILY AND STAFF AT FACILITY TO HAVE RIGHT SIDED WEAKNESS AND SLURRED SPEECH. PATIENT DENIES ANY PAIN AT THIS TIME. VITALS ARE STABLE. BLOOD PRESSURE ELEVATED. PER PATIENT HE WAS JUST DISCHARGED FROM [facility] FOR INFECTION IN HIS BLOOD. PATIENT WAS EVALUATED BY TELENEUROLOGIST AT BEDSIDE. PER TELENEURO PATIENT IS NOT CANDIDATE FOR TNK DUE TO RECENT GI BLEED ADMISSION LAST MONTH. DERRICK N OF CARE EXPLAINED TO PATIENT. PATIENT IN AGREEMENT WITH PLAN.
[2025-01-10 12:59] LABS: Collection Type, Urine Catheter
[2025-01-10 13:05] LABS: Amorphous Crystals,Urine Present (Absent); Bilirubin,Urine Negative (Negative); Blood,Urine Negative (Negative); Color,Urine Lt-Yellow (Lt Yel-Yel); Glucose, Urine Negative (Negative); Ketones,Urine Negative (Negative); Leukocyte Esterase,Urine Negative (Negative); Nitrite,Urine Negative (Negative); PH,Urine 7.0 (5.0-7.0); Protein,Urine Negative (Neg - Trace); RBC,Urine 5 /hpf (0-3); Specific Gravity,Urine 1.037 (1.001-1.035); Squamous Epithelial Cell,Urine < 1 /hpf (0-5); Urobilinogen,Urine Negative mg/dL (0.0-1.0); WBC,Urine 1 /hpf (0-5)
[2025-01-10 13:10] LABS: Amphetamine/Methamp Scrn,U Negative (Negative); Barbiturate Screen,Urine Negative (Negative); Benzodiazepines Screen,Urine Negative (Negative); Benzoylecgonine Screen, Ur Negative (Negative); Fentanyl Screen,Urine Negative (Negative); Opiate Screen,Urine Negative (Negative); THC Screen,Urine Negative (Negative)
[2025-01-10] MEDS: LABETALOL INJ 5 MG/ML VIAL 20 ML 20 MG IVP (13:24)
--- NOTE | 2025-01-10 13:32 | PC.NURSE ---
PER DR. RANDOLPH PATIENT TO RECEIVE IV LABETOLOL FOR HTN. LABETOLOL GIVEN. PER MD MONITOR PATIENT'S BLOOD PRESSURE AND PATIENT MAY NEED TO HAVE PERMISSIVE HYPERTENSION DUE TO POSSIBLE ISCC
[2025-01-10 13:41] LABS: Clarity,Urine Hazy (Clear/Hazy)
--- NOTE | 2025-01-10 14:12 | ESHP_ITS ---
<Statement entered by Calroz Houston MD - 01/10/25 18:55> 65-year-old male with past medical history of hypertension, A-fib, hypothyroidism, and prostate cancer s/p chemotherapy was admitted to the hospital on 10/10/2024 due to possible CVA. Patient [facility] with complaints of right sided weakness and dysarthria beginning around 10:30 AM this morning. Patient also mentioned that he had some chest pain around an hour before EMS came, but stated that it improved. Patient states that he was also hospitalized around 3 days ago at [facility]. Patient is a very poor historian and would not provide much history and did not know if he was taking his Eliquis or not.. Given the concern for CVA and focal deficits seen on physical exam stroke alert was called in the ED and tele neurology stated that the patient was not a candidate for thrombolytics given that patient had a GI bleed in the previous month. Patient will be admitted to telemetry for CVA workup including MRI and TTE. Was started on aspirin and atorvastatin. Speech and physical therapy ordered with neurochecks every 4. In summary #CVA vs TIA--> ASA 81 mg, atorvastatin, neurology on board, MRI and echo ordered, as per neurology will start Eliquis if MRI negative, speech and physical therapy on board General: A/O x3, no acute distress Eyes: PERRL, EOMI. Anicteric, vision grossly intact. Ears: No ear pain, no ear discharge, Hearing grossly intact. Nose: No nasal discharge. Mouth/Throat: Moist mucous membranes, no redness, no lesions. Neck: Neck supple, non-tender, no cervical lymphadenopathy. Lungs: Clear KAHLIL, No accessory muscle use. Cardio: Normal S1/S2, irregular rhythm, no murmurs, no JVD Abdomen: Soft, non-tender, no palpable masses, peristalsis present, no guarding or rebound. Extremities: Symmetrical, no significant deformities, no peripheral edema , non-tender, peripheral pulses presents. Skin: No rashes, no lesions, warm to touch. Neuro: Mild facial asymmetry with mild left facial fold flattening, right upper and lower extremity strength 3 out of 5 compared to the left, there is some left lower extremity drift as patient's leg fell less than 10 seconds to the bed. Following on commands, sensory was intact, pupils were equally reactive, no dysmetria. Psych: Cooperative, appropriate mood and effect. I have reviewed the note and agree with the medical student's assessment & plan with exceptions as below. I have personally reviewed labs, imaging, home meds/prior records, examined the patient, formulated and discussed management plan with my attending Carloz Houston PGY2 Disclaimer: Even though this this note was dictated by speech recognition and even though it was carefully revised there may still be minor errors in boot maker due to voice recognition software. Documentation for date of: 01/10/25 HPI History of Present Illness History of present illness: Mr Ebenezer Portillo is a 65 yo male w/ PMH HTN, AFIB, Hypothyroidism, Prostate Ca s/p chemotherapy, presented w/ acute onset R-sided weakness and dysarthria beginning ~1030 today. He also reported chest pain one hour before EMS arrived at his SNF however does not report chest pain in ED. At baseline he uses a wheelchair but states he is able to walk short distances. He had recently been hospitalized x3 days ago at [facility], he reports it was for the same symptoms but he is unsure what the hospital course or discharge instructions were. Overall he is a poor historian. Notably he had been previously hospitalized at the end of December for hypotension and anemia, underwent EGD that did not reveal bleed source, it was concluded the presentation was 2/2 internal hemorrhoids which were ligated. Per chart review, he is on the below medications though he is unsure of what he takes or when he last took medications. Per medics report, on scene patient had right-sided weakness, right facial droop, and slurred speech, though droop and dysarthria are not present upon hospitalist consult. Today the patient reports generalized weakness and R ankle pain. He denies any chest pain, SOB, palpitations, fever/chills, abdominal pain. Per pt he had x1 episode of diarrhea the day before admission, and his R ankle pain began after physical therapy several days ago. Pt requests FULL CODE, he designates his son Ney Portillo as his MDM. ED Course: Pt received IV Labetalol and was placed on maintanence fluids. TeleNeuro Dr. Butler was consulted. Labs showed anemia Hgb 10.6, EKG showed sinus rhythm, CT/CTA both negative for acute intracranial pathology. Pt has 40-60% stenosis R carotid and 10-30% stenosis L carotid. Pt was admitted to telemetry for management of possible CVA. PMH: As above PSH: Ligation of internal hemorrhoids Meds: Per chart review, Abiraterone 250mg, Mirtazapine 15mg, Liothyroinine 25mcg, Levothyroxine 125mcg, Eliquis 5mg BID, Flomas 0.4mg, Metoprolol succinate 50mg ER, Lisinopril 20mg FH: Brother had prostate cancer, however no family stroke history SH: 15 pack year smoking history quit upon cancer diagnosis 2-3 years ago, 1 bottle tequila weekly for 20 years also quit upon cancer diagnosis 2-3 years ago ROS negative except as noted above. Exam Vital Signs Temp Pulse Resp BP Pulse Ox O2 Del Method 99.5 F 75 19 198/112 H 96 Room Air 01/10/25 12:19 01/10/25 13:24 01/10/25 13:01 01/10/25 13:24 01/10/25 13:01 01/10/25 13:01 Narrative Exam General: A/O x3, no acute distress Eyes: PERRL, EOMI. Anicteric, vision grossly intact. Ears: No ear pain, no ear discharge, Hearing grossly intact. Nose: No nasal discharge. Mouth/Throat: Moist mucous membranes, no redness, no lesions. Neck: Neck supple, non-tender, no cervical lymphadenopathy. Lungs: Clear to auscultation bilaterally, no rales/rhonchi/wheezes, no accessory muscle use. Cardio: Normal S1/S2, regular rate and rhythm, no murmurs, no JVD Abdomen: Soft, non-tender, no palpable masses, peristalsis present, no guarding or rebound. Extremities: Symmetrical, no significant deformities, no peripheral edema, peripheral pulses presents. TTP and reduced ROM of R Ankle Skin: No rashes, no lesions, warm to touch. Neuro: 3+ strength R UE and R LE. motor and sensory intact Psych: Cooperative, appropriate mood and effect. Results: Labs 01/10/25 11:50 01/10/25 11:50 Labs: Short CBC 01/10/25 Range/Units 11:50 WBC 8.1 (3.8-10.6) Thou/mm3 Hgb 10.6 L (13.5-16.0) g/dL Hct 33.0 L (41.0-53.0) % Plt Count 435 D (140-440) Thou/mm3 BMP 01/10/25 11:50 Sodium 142 Potassium 4.0 Chloride 103 Carbon Dioxide 28.4 BUN 9 Creatinine 0.7 Glucose 112 H Calcium 9.7 Cardiac Enzymes 01/10/25 Range/Units 11:50 Troponin I < 0.002 (0.0-0.045) ng/mL Liver Function 01/10/25 Range/Units 11:50 Total Bilirubin 0.6 (0.3-1.2) mg/dL AST 21 (0-34) U/L ALT 27 (10-49) U/L Alkaline Phosphatase 84 (46-116) U/L Albumin 4.1 (3.4-4.8) gm/dL Urine 01/10/25 Range/Units 12:50 Urine Color Lt-Yellow (Lt Yel-Yel) Urine Clarity Hazy (Clear/Hazy) Urine pH 7.0 (5.0-7.0) Ur Specific [place] 1.037 H (1.001-1.035) Urine Protein Negative (Neg - Trace) Urine Glucose (UA) Negative (Negative) Quality Measures Quality Measures stroke Suspected type of Stroke: Non Acute Last known well (date): 01/10/25 Last known well (time): 10:30 Tenecteplase given: Reason(s) Tenecteplase not given: Use of NOAC (eliquis, xarelto, or pradaxa) (and recent GI bleed (< 30 days ago) ) not given Rehab services: PT evaluation ordered and Speech Language Pathology eval ordered VTE Prophylaxis: pharmaceutical Antithrombotic by day 2:: not indicated (describe) Statin ordered: not ordered Anticoagulation ordered for A- fib or flutter (current or hx): contraindicated and not indicated Advance care planning discussed with:: patient Medications Home Medications and Allergies Home Medications ?Medication ?Instructions ?Recorded ?Confirmed ?Type abiraterone 250 mg tablet 250 mg PO QDAY 12/24/2412/04 History apixaban 5 mg tablet (Eliquis) 5 mg PO BID 12/24/24 History levothyroxine 125 mcg tablet 125 mcg PO QDAY 12/24/24 12/24/24 History liothyronine 25 mcg tablet 25 mcg PO QDAY 12/24/24 History metoprolol succinate 50 mg 50 mg PO QDAY 12/24/2412/04 History tablet,extended release 24 hr mirtazapine 15 mg tablet 15 mg PO .at bedtime 5 12/24/24 History tamsulosin 0.4 mg capsule 0.4 mg PO .at bedtime 12/24/24 History Allergies Allergy/AdvReac Type Severity Reaction Status Date / Time No Known Allergies Allergy Verified 01/10/25 12:15 Visit Medications Sodium Chloride (Ns) 1,000 mls @ 50 mls/hr IV .Q20H JALEN Stop: 02/09/25 11:44 Last Admin: 01/10/25 12:38 Dose: 50 mls/hr Discontinued Medications Labetalol HCl (Labetalol Inj 5 Mg/Ml Vial 20 Ml) 20 mg IVP X1 ONE Stop: 01/10/25 13:12 Last Admin: 01/10/25 13:24 Dose: 20 mg Assessment & Plan Plan 65 yo male w/ PMH HTN, AFIB, Hypothyroidism, Prostate Ca s/p chemotherapy, presented w/ acute onset R-sided weakness and dysarthria beginning morning of admit. Admitted for management of possible CVA. #CVA Per pt he has been experiencing R sided weakness of UE and LE since the morning of admission. He also reports having similar symptoms at previous hospitalization 3+ days ago at [facility]. Per family he also demonstrated dysarthria, though this was not apparent in ED. Admission NIHSS 1, he is A&Ox3 (name, month, location) but is unaware of his age. CT/CTA in ED both negative for acute cerebral process. HA1c, lipid panel WNL in December admission. TSH was low but thyroid hormones were WNL. At this stage given negative imaging it is possible true stroke vs TIA as symptoms do seem to be resolving gradually. Neurology consulted Dr. Butler, recommendations below. - Admit telemetry - q4 Neurochecks - IV NS 50ml/hr - Head of bed kept 30 degrees - Maintain euglycemia, avoid hyperthermia - Place NPO given possibility of intervention - Hold anticoagulation for now - ASA 81mg, IV Labetalol 5mg q6. Maintain permissive hypertension for now - Blood/urine cx pending - TTE - MRI brain w/o con, if negative resume Eliquis, if small stroke resume Eliquis in 72 hours #AFIB EKG in ED showed sinus rhythm. - Monitor, resume anticoag per stroke workup above #HTN Chronic, controlled. Pt is on home Metoprolol and Lisinopril however is unsure if he has been taking it. Pt received Labetalol IV x1 in ED with good effect. - Monitor, Labetalol IV as above #Hypothyroidism TSH during December admission low 0.52, however T4 normal. Per chart review pt has home T3 and T4 as per HPI - Monitor, consider resuming home medications pending stroke workup Hospital management: Disposition: CVA workup, pending MRI Fluids: IV NS Diet: NPO Lines: Peripheral IV DVT prophylaxis: IV Heparin q8 CODE STATUS: full code ----- Plan discussed with attending physician Dr. Stephanie Spears, Medical Student [facility] Attending Provider Attestation/Addendum I have discussed and was present for the essential components of the history, physical examination, diagnosis, and treatment plan with the resident. I agree with the patient's care as documented by the resident and amended herein by me. Aleks Brown DO. Although this document has been carefully reviewed, there may still be some phonetic and other typographical errors. These errors are purely grammatical due to imperfections in the software program and should not be construed in any way to compromise the substance of the patient's medical care during this visit.
--- NOTE | 2025-01-10 14:32 | XR_ITS ---
Examination: Carotid arterial duplex scan, ultrasound. Date and time of exam: January 10, 2025, 1448 hours INDICATIONS: Stroke alert today with onset focal neurologic deficit including dizziness Technique: Multiple sonographic images have been obtained of the carotid arteries and vertebral arteries, B-mode/grayscale imaging and Doppler spectral analysis and color flow Peak systolic and diastolic velocities have been recorded. Systolic diastolic ratios have been calculated. Findings: Right peak systolic velocities: Distal internal carotid artery peak systolic velocity is 1.0 M/sec Proximal internal carotid artery peak systolic velocity is 1.1 M/sec Carotid bifurcation peak systolic velocity is 1.0 M/sec External carotid artery peak systolic velocity is 1.1 M/sec Vertebral artery flow is antegrade. Left peak systolic velocities: Distal internal carotid artery peak systolic velocity is 1.0 M/sec Proximal internal carotid artery peak systolic velocity is 0.9 M/sec Carotid bifurcation peak systolic velocity is .9 M/sec External carotid artery peak systolic velocity is 1.0 M/sec Vertebral artery flow is antegrade Doppler waveform analysis demonstrates no spectral broadening Impression: Right internal carotid artery demonstrates 10 to 30% stenosis. Left internal carotid artery demonstrates 10 to 30% stenosis.
--- NOTE | 2025-01-10 14:34 | ECHO_ITS ---
Transthoracic Echo Report Ht (in): 62 Wt (lb): 240 Exam Location: [facility] Status: Inpatient Career Development Associate: Aimee Peng Indications: Procedure Performed: BP: 125 / 89 HR: 69 MEASUREMENTS (Male / Female) Normal Values 2D ECHO LA Volume Index 35.0 cm?/m? 16 - 28 cm?/m? M-MODE AV Cusp Separation MM 1.8 cm DOPPLER AV Peak Velocity 147.0 cm/s AV Peak Gradient 8.6 mmHg AV Mean Gradient 5.0 mmHg AV Velocity Time Integral 32.7 cm LVOT Peak Velocity 99.2 cm/s LVOT Peak Gradient 3.9 mmHg LVOT Velocity Time Integral 20.9 cm MV Area PHT 2.9 cm? Mitral E Point Velocity 83.6 cm/s Mitral A Point Velocity 70.3 cm/s Mitral E to A Ratio 1.2 LV E' Lateral Velocity 15.2 cm/s Mitral E to LV E' Lateral Ratio 5.5 LV E' Septal Velocity 9.6 cm/s Mitral E to LV E' Septal Ratio 8.7 TR Peak Velocity 160.7 cm/s TR Peak Gradient 10.3 mmHg PV Peak Velocity 124.0 cm/s PV Peak Gradient 6.2 mmHg FINDINGS Left Ventricle Normal left ventricular size, wall thickness, systolic function with no obvious regional wall motion abnormalities. Normal left ventricular diastolic filling pattern for age. The ejection fraction is visually estimated at 50--55%. Right Ventricle The right ventricle is normal in size and systolic function. Left Atrium The left atrial cavity size is moderately increased. Right Atrium The right atrium is normal by two-dimensional imaging, color flow and Doppler imaging with no structural abnormalities, no thrombus formation present. Atrial Septum No [id number] shunt demonstrated by agitated saline injection. Aorta The aorta is normal by two-dimensional, color flow and Doppler interrogation. Mitral Valve The mitral valve is normal by two-dimensional, color flow and Doppler interrogation. Trace mitral regurgitation. Aortic Valve The aortic valve is trileaflet and normal by two-dimensional, color flow and Doppler interrogation. There is no significant aortic valve regurgitation. Tricuspid Valve The tricuspid valve is normal by two-dimensional, color flow and Doppler interrogation.there is trace tricuspid valve regurgitation. Pulmonic Valve The pulmonic valve is not well visualized. There is no significant pulmonic valve regurgitation. Vessels The pulmonary artery appears normal. The inferior vena cava pulmonary and hepatic veins appear normal. Pericardium The pericardium is normal by two-dimensional imaging. There is no significant pericardial effusion. CONCLUSIONS Indication: stroke rule out Normal left ventricular size and function. Approximate ejection fraction is 50- 55%. Normal diastolic dysfunction. Normal right ventricular size and function. Trace mitral and trace tricuspid regurgitation noted. Moderate dilated LA Negative bubble study Yusra Rasmussen (Electronically Signed) Final Date: 11 January 2025 10:21
[2025-01-10] MEDS: ASPIRIN EC 81 MG TABEC PO (16:53)
[2025-01-10] MEDS: ATORVASTATIN CALCIUM 20 MG TABLET 40 MG PO (20:34)
[2025-01-10] MEDS: HEPARIN SOD INJ 5000 UNIT/ML VIAL SC (21:27)
[2025-01-11] VITALS: BP 114/90; PULSE 71; PULSE 82; RESP 23; TEMP 36.3; O2SAT 94
[2025-01-11 04:00] VITALS: BP 125/89; PULSE 121; PULSE 80; RESP 21; TEMP 36.4; O2SAT 95
[2025-01-11] MEDS: HEPARIN SOD INJ 5000 UNIT/ML VIAL SC ×2 (05:16→14:16)
[2025-01-11 06:00] VITALS: BMI 44.6
[2025-01-11 06:21] LABS: Basophils # (Auto) 0.0 Thou/mm3 (0.0-0.2); Basophils % (Auto) 1 % (0-2.5); Eosinophils # (Auto) 0.1 Thou/mm3 (0.0-0.5); Eosinophils % (Auto) 1 % (0-10); Hematocrit 30.7 % (41.0-53.0); Hemoglobin 10.1 g/dL (13.5-16.0); Immature Granulocytes Auto 0.06 Thou/mm3 (0.00-0.00); Lymphocytes # (Auto) 0.7 Thou/mm3 (1.0-4.8); Lymphocytes % (Auto) 12 % (10-50); Mean Corpuscular HGB Conc 32.9 g/dl (31.0-37.0); Mean Corpuscular Hemoglobin 28.9 pg (25.0-35.0); Mean Corpuscular Volume 88 fL (80-100); Monocytes # (Auto) 0.5 Thou/mm3 (0.0-0.8); Monocytes % (Auto) 9 % (0-12); Neutrophils # (Auto) 4.4 Thou/mm3 (1.8-7.7); Neutrophils % (Auto) 77 % (37-80); Nucleated Red Blood Cell # 0.00 Thou/mm3 (0.00-0.00); Nucleated Red Blood Cell % 0 /100 WBC (0); Platelet Count 363 Thou/mm3 (140-440); RDW Standard Deviation 48.3 fL (35.1-43.9); Red Blood Count 3.50 Miln/mm3 (4.50-5.90); White Blood Count 5.8 Thou/mm3 (3.8-10.6)
[2025-01-11 06:47] LABS: Alanine Aminotransferase 19 U/L (10-49); Albumin, Serum 3.7 gm/dL (3.4-4.8); Albumin/Globulin Ratio 1.2 (1.2-2.2); Alkaline Phosphatase 77 U/L (46-116); Anion Gap 12 (7-16); Aspartate Amino Transferase 19 U/L (0-34); BUN/Creatinine Ratio 12 Ratio (12-20); Bilirubin,Total 0.9 mg/dL (0.3-1.2); Blood Urea Nitrogen 7 mg/dL (9-23); Calcium 9.5 mg/dL (8.3-10.6); Calcium (Corrected) 9.7 mg/dL (8.5-10.1); Carbon Dioxide 27.7 mMol/L (20.0-31.0); Cardiac Risk Estimate 5.1 RATIO (4.0-6.7); Chloride 105 mMol/L (98-107); Cholesterol 158 mg/dL (132-200); Creatinine (Component) 0.6 mg/dL (0.6-1.3); Estimated Creatinine Clearance 130.3 mL/min (>60); Globulin 3.1 gm/dL (2.3-3.5); Glucose 117 mg/dL (74-106); HDL Cholesterol 31 mg/dL (40-60); LDL Cholesterol,Calculated 107 mg/dL (0-130); Magnesium 1.9 mg/dL (1.6-2.6); Osmolality,Calculated 287 (275-295); Phosphorous 3.9 mg/dL (2.4-5.1); Potassium 3.5 mMol/L (3.4-5.1); Sodium 145 mMol/L (136-145); Thyroid Stimulating Hormone 3.78 uIU/mL (0.55-4.78); Total Protein 6.8 gm/dL (5.7-8.2); Triglycerides 98 mg/dL (30-150); eGFR > 60 See Note
[2025-01-11 08:00] VITALS: BP 142/82; PULSE 75; PULSE 77; RESP 24; TEMP 36; O2SAT 94
[2025-01-11] MEDS: ASPIRIN EC 81 MG TABEC PO (08:37)
[2025-01-11] MEDS: SODIUM CHLORIDE 0.9% 1000 ML 1,000 ML 50 ML IV (08:37)
--- NOTE | 2025-01-11 08:57 | XR_ITS ---
EXAMINATION: Right ankle 2 views TECHNIQUE: AP lateral right ankle 2 views Date and time: January 11, 2025, 0912 hours INDICATIONS: Right angle swelling and pain this week. FINDINGS: Bimalleolar soft tissue swelling. Moderate osteopenia. Mild osteoarthritis tibiotalar joint. No fracture Small plantar posterior bony calcaneal spurs IMPRESSION: Bimalleolar soft tissue swelling Mild osteoarthritis tibiotalar joint
[2025-01-11] MEDS: LEVOTHYROXINE SODIUM 112 MCG TABLET PO (10:37)
[2025-01-11] MEDS: HYDROcodone/APAP 5/325 TABLET 1 TAB PO (10:37)
--- NOTE | 2025-01-11 11:16 | ESPR_ITS ---
<Statement entered by Carloz Houston MD - 01/11/25 11:37> Patient was seen and evaluated at bedside this morning. No acute overnight events. Patient's MRI was negative for any acute infarcts and patient's carotid ultrasound showed less than 30% stenosis bilaterally. Patient's echocardiogram did not show any PFO and showed EF of 50 to 55%. Also did ankle x-ray as patient's right ankle was swollen, only showed soft tissue swelling, but no fractures. Today's patient's strength on the right side was more equal to the left side, but still mildly decreased. General: A/O x3, no acute distress Eyes: PERRL, EOMI. Anicteric, vision grossly intact. Ears: No ear pain, no ear discharge, Hearing grossly intact. Nose: No nasal discharge. Mouth/Throat: Moist mucous membranes, no redness, no lesions. Neck: Neck supple, non-tender, no cervical lymphadenopathy. Lungs: Clear KAHLIL, No accessory muscle use. Cardio: Normal S1/S2, irregular rhythm, no murmurs, no JVD Abdomen: Soft, non-tender, no palpable masses, peristalsis present, no guarding or rebound. Extremities: Symmetrical, no significant deformities, no peripheral edema , non-tender, peripheral pulses presents. Skin: No rashes, no lesions, warm to touch. Neuro: Still mild facial asymmetry with mild left facial fold flattening, right upper and lower extremity strength 4 out of 5 more equivalent to left side. Psych: Cooperative, appropriate mood and effect. I have reviewed the note and agree with the medical student's assessment & plan with exceptions as below. I have personally reviewed labs, imaging, home meds/prior records, examined the patient, formulated and discussed management plan with my attending Carloz Houston PGY2 Disclaimer: Even though this this note was dictated by speech recognition and even though it was carefully revised there may still be minor errors in drafter detail due to voice recognition software. Documentation for date of: 01/11/25 Subjective Subjective Interval history: Spoke at length with patient as well as nurse for updates this AM. The patient passed swallow test this morning. Overnight no acute events. Telemetry overnight showed sinus tachycardia up to highest 128. This morning the pt reports improving weakness, denies chest pain, palpitations, abdominal pain, fever, chills, SOB, dysuria. Exam Vital Signs Temp Pulse Resp BP Pulse Ox O2 Del Method 96.8 F 75 24 H 142/82 H 94 L Room Air 01/11/25 08:00 01/11/25 08:00 01/11/25 08:00 01/11/25 08:00 01/11/25 08:00 01/11/25 08:00 Narrative Exam General: A/O x3, no acute distress Eyes: PERRL, EOMI. Anicteric, vision grossly intact. Ears: No ear pain, no ear discharge, Hearing grossly intact. Nose: No nasal discharge. Mouth/Throat: Moist mucous membranes, no redness, no lesions. Neck: Neck supple, non-tender, no cervical lymphadenopathy. Lungs: Clear to auscultation bilaterally, no rales/rhonchi/wheezes, no accessory muscle use. Cardio: Normal S1/S2, regular rate and rhythm, no murmurs, no JVD Abdomen: Soft, non-tender, no palpable masses, peristalsis present, no guarding or rebound. Extremities: Symmetrical, no significant deformities, no peripheral edema, peripheral pulses presents. TTP and reduced ROM of R Ankle Skin: No rashes, no lesions, warm to touch. Neuro: 4+ strength R UE and R LE. motor and sensory intact Psych: Cooperative, appropriate mood and effect. Objective Labs 01/11/25 04:57 01/11/25 04:57 Labs: Laboratory Results - last 24 hr 01/10/25 01/10/25 01/11/25 11:50 12:50 04:57 WBC 8.1 5.8 RBC 3.75 L 3.50 L Hgb 10.6 L 10.1 L Hct 33.0 L 30.7 L MCV 88 88 MCH 28.3 28.9 MCHC 32.1 32.9 RDW Std Deviation 46.6 H 48.3 H Plt Count 435 D 363 D Neut % (Auto) 79 77 Lymph % (Auto) 11 12 Brown % (Auto) 8 9 Eos % (Auto) 1 1 Baso % (Auto) 0 1 Neut # (Auto) 6.4 4.4 Lymph # (Auto) 0.9 L 0.7 L Brown # (Auto) 0.6 0.5 Eos # (Auto) 0.1 0.1 Baso # (Auto) 0.0 0.0 Immature Gran # (Auto) 0.09 H 0.06 H Absolute Nucleated RBC 0.00 0.00 Immature Gran % 1 H 1 H Nucleated RBC % 0 0 PT 12.0 INR 1.1 APTT 30.5 Sodium 142 145 Potassium 4.0 3.5 D Chloride 103 105 Carbon Dioxide 28.4 27.7 Anion Gap 11 12 BUN 9 7 L Creatinine 0.7 0.6 Estim Creat Clear Calc 110.5 130.3 eGFR > 60 > 60 BUN/Creatinine Ratio 13 12 Glucose 112 H 117 H Calculated Osmolality 282 287 Calcium 9.7 9.5 Corrected Calcium 9.7 9.7 Phosphorus 3.9 Magnesium 1.9 1.9 Total Bilirubin 0.6 0.9 AST 21 19 ALT 27 19 Alkaline Phosphatase 84 77 Troponin I < 0.002 B-Natriuretic Peptide 25 Total Protein 7.3 6.8 Albumin 4.1 3.7 Globulin 3.2 3.1 Albumin/Globulin Ratio 1.3 1.2 Triglycerides 98 Cholesterol 158 LDL Cholesterol, Calc 107 HDL Cholesterol 31 L Cholesterol/HDL Ratio 5.1 TSH 3.78 D Ur Collection Type Catheter Urine Color Lt-Yellow Urine Clarity Hazy Urine pH 7.0 Ur Specific [place] 1.037 H Urine Protein Negative Urine Glucose (UA) Negative Urine Ketones Negative Urine Blood Negative Urine Nitrite Negative Urine Bilirubin Negative Urine Urobilinogen (Auto) Negative Ur Leukocyte Esterase Negative Urine RBC 5 H Urine WBC 1 Ur Squamous Epith Cells < 1 Amorphous Crystals Present A Urine Bacteria None Urine Opiates Screen Negative Urine Fentanyl Screen Negative Ur Barbiturates Screen Negative U Amphetamin/Meth Scrn Negative U Benzodiazepines Scrn Negative U Cocaine Metab Screen Negative U Marijuana (THC) Screen Negative Ethyl Alcohol < 3.0 Quality Measures Quality Measures stroke Suspected type of Stroke: Non Acute Last known well (date): 01/10/25 Last known well (time): 10:30 Tenecteplase given: Reason(s) Tenecteplase not given: Use of NOAC (eliquis, xarelto, or pradaxa) (and recent GI bleed (< 30 days ago) ) not given Rehab services: PT evaluation ordered and Speech Language Pathology eval ordered VTE Prophylaxis: pharmaceutical Antithrombotic by day 2:: not indicated (describe) Statin ordered: <75 y/o high intensity dose Anticoagulation ordered for A-fib or flutter (current or hx): not indicated Advance care planning discussed with:: patient Assessment & Plan Assessment Current Active Medications: Generic Name Dose Route Start Last Admin Trade Name Freq PRN Reason Stop Dose Admin Acetaminophen 650 mg 01/10/25 14:30 Acetaminophen 325 Mg Tablet PO 02/09/25 14:29 Q6H PRN Fever >100.4 Acetaminophen 650 mg 01/10/25 14:30 Acetaminophen 325 Mg Tablet PO 02/09/25 14:29 Q6H PRN PAIN SCALE 1-3 (mild Hydrocodone Bitart/Acetaminophen 1 tab 01/10/25 14:30 01/11/25 10:37 Hydrocodone/Apap 5/325 Tablet PO 01/15/25 14:29 1 tab Q4HR PRN Administration PAIN SCALE 4-6 (Moderate Aspirin 81 mg 01/10/25 14:45 01/11/25 08:37 Aspirin Ec 81 Mg Tabec PO 02/09/25 14:44 81 mg QDAY JALEN Administration Atorvastatin Calcium 40 mg 01/10/25 21:00 01/10/25 20:34 Atorvastatin Calcium 20 Mg Tablet PO 02/09/25 20:59 40 mg HS JALEN Administration Heparin Sodium (Porcine) 5,000 unit 01/10/25 22:00 01/11/25 05:16 Heparin Sod Inj 5000 Unit/Ml Vial SC 01/24/25 21:59 5,000 unit Q8HR JALEN Administration Labetalol HCl 5 mg 01/10/25 14:35 Labetalol Inj 5 Mg/Ml Vial 20 Ml IVP 02/09/25 14:44 Q6H PRN SBP above 220 Levothyroxine Sodium 112 mcg 01/11/25 09:00 01/11/25 10:37 Levothyroxine Sodium 112 Mcg Tablet PO 02/10/25 08:59 112 mcg ACBR JALEN Administration Mirtazapine 15 mg 01/11/25 21:00 Mirtazapine 15 Mg Tablet PO 02/10/25 20:59 HS JALEN Ondansetron HCl 4 mg 01/10/25 14:30 Ondansetron Inj 2 Mg/Ml Inj 2 Ml IVP 02/09/25 14:29 Q6H PRN NAUSEA OR VOMITING Protocol Tamsulosin HCl 0.4 mg 01/11/25 21:00 Tamsulosin Hcl 0.4 Mg Capsule PO 02/10/25 20:59 HS JALEN Plan 65 yo male w/ PMH HTN, AFIB, Hypothyroidism, Prostate Ca s/p chemotherapy, presented w/ acute onset R-sided weakness and dysarthria beginning morning of admit. Admitted for management of possible CVA. #TIA vs CVA Per pt he has been experiencing R sided weakness of UE and LE since the morning of admission. He also reports having similar symptoms at previous hospitalization 3+ days before admit at [facility]. Per family he also demonstrated dysarthria, though this was not apparent in ED. Admission NIHSS 1, today is A&Ox3 (name, month, location) but is unaware of his age. CT/CTA in ED both negative for acute cerebral process. Lipid panel and TSH WNL this admission. MRI 01/10 negative for acute infarct, echocardiogram showed negative bubble study. At this stage most likely TIA vs true stroke as symptoms continue to improve today. Neurology Dr. Medel consulted, appreciated, awaiting recs. - q4 Neurochecks - IV NS 50ml/hr - Head of bed kept 30 degrees - Maintain euglycemia, avoid hyperthermia - Passed swallow test this AM, will advance diet - Hold anticoagulation for now - ASA 81mg, IV Labetalol 5mg q6, PO Atorvastatin 40mg. Consider resuming anticoag after Dr. Medel recs - Urine cx pending #AFIB EKG in ED showed sinus rhythm. - Monitor, resume anticoag per stroke workup above #HTN Chronic, controlled. Pt is on home Metoprolol and Lisinopril however is unsure if he has been taking it. Pt received Labetalol IV x1 in ED with good effect. - Monitor, Labetalol IV as above #Hypothyroidism TSH during December admission low 0.52, however T4 normal. Per chart review pt has home T3 and T4 as per HPI - Cont PO Levothyroxine 112mcg #Hx Prostate Ca Pt is s/p chemotherapy, has no genitourinary symptoms this admission. - Cont home Tamsulosin PO 0.4mg Hospital management: Disposition: Pending Neuro recommendations Fluids: IV NS Diet: Cardiac Lines: Peripheral IV DVT prophylaxis: IV Heparin q8 CODE STATUS: full code ----- Plan discussed with attending physician Dr. Stephanie Spears, Medical Student OMSI Attending Provider Attestation/Addendum I have discussed and was present for the essential components of the history, physical examination, diagnosis, and treatment plan with the resident. I agree with the patient's care as documented by the resident and amended herein by me. Aleks Brown DO. Although this document has been carefully reviewed, there may still be some phonetic and other typographical errors. These errors are purely grammatical due to imperfections in the software program and should not be construed in any way to compromise the substance of the patient's medical care during this visit.
[2025-01-11 12:00] VITALS: BP 133/53; PULSE 81; PULSE 90; RESP 21; TEMP 36.4; O2SAT 93
--- NOTE | 2025-01-11 12:22 | CHAP ---
Patient was visited by the Spiritual care Volunteer who prayed for them. (Volunteer was in the hospital from 10:20-12:22)
--- NOTE | 2025-01-11 13:37 | ESDS_ITS ---
<Statement entered by Carloz Houston MD - 01/11/25 14:13> 65-year-old male with past medical history of hypertension, A-fib, hypothyroidism, and prostate cancer s/p chemotherapy was admitted to the hospital on 01/10/2025 due to possible CVA. Patient [facility] ED from the [facility] with complaints of right sided weakness and dysarthria beginning around 10:30 AM the morning of admission. Patient's imaging came back negative for acute stroke including MRI and head CT and CTA was negative for LVO. Patient's ultrasound carotids was also showing less than 3% stenosis bilateral carotid arteries on echocardiogram did show EF of 50 to 55%, but no PFO. Patient's symptoms did not improve on the day after admission and giving the findings that were negative for stroke at this time patient was stable enough to be discharged back to [facility] facility after discussing the case with neurology. General: A/O x3, no acute distress Eyes: PERRL, EOMI. Anicteric, vision grossly intact. Ears: No ear pain, no ear discharge, Hearing grossly intact. Nose: No nasal discharge. Mouth/Throat: Moist mucous membranes, no redness, no lesions. Neck: Neck supple, non-tender, no cervical lymphadenopathy. Lungs: Clear KAHLIL, No accessory muscle use. Cardio: Normal S1/S2, irregular rhythm, no murmurs, no JVD Abdomen: Soft, non-tender, no palpable masses, peristalsis present, no guarding or rebound. Extremities: Symmetrical, no significant deformities, no peripheral edema , non-tender, peripheral pulses presents. Skin: No rashes, no lesions, warm to touch. Neuro: Still mild facial asymmetry with mild left facial fold flattening, right upper and lower extremity strength 4 out of 5 more equivalent to left side. Psych: Cooperative, appropriate mood and effect. I have reviewed the note and agree with the medical student's assessment & plan with exceptions as below. I have personally reviewed labs, imaging, home meds/prior records, examined the patient, formulated and discussed management plan with my attending Carloz Houston PGY2 Disclaimer: Even though this this note was dictated by speech recognition and even though it was carefully revised there may still be minor errors in multi line claims adjuster due to voice recognition software. Planned Discharge Date 01/11/25 DS: Providers Provider Date of admission: 01/10/25 14:51 Primary care physician: Alexsander Echavarria MD Admitting Provider: Rashad Brown DO Attending Provider on Admission: Rashad Brown DO Consults: 01/10/25 11:37 Consult to Neurology / Tele-Neurology Routine Comment: Consulting Provider: [facility] 01/10/25 14:34 Referral Speech Therapy Routine Comment: 01/10/25 14:35 Referral Physical Therapy Routine Comment: Physician Instructions: 01/10/25 19:59 Referral Physical Therapy Routine Comment: Physician Instructions: 01/11/25 06:14 Consult to Neurology / Tele-Neurology Routine Comment: Consulting Provider: Jonathan Medel Attending Provider on DC: Rashad Brown DO Discharging Provider: Rashad Brown DO DS: Diagnosis Problem List Completed Was Problem List Reviewed/Reconciled?: Yes Hospital Course Hospital Course Hospital course: Mr Ebenezer Portillo is a 65 yo male w/ PMH HTN, AFIB, Hypothyroidism, Prostate Ca s/p chemotherapy, presented w/ acute onset R-sided weakness and dysarthria . He also reported chest pain one hour before EMS arrived at his SNF however did not report chest pain in ED. At baseline he uses a wheelchair but states he is able to walk short distances. He had recently been hospitalized at [facility], he reports it was for the same symptoms but he is unsure what the hospital course or discharge instructions were, per conversation with his son he was managed there for bacteremia. Additionally he had been previously hospitalized at the end of December for hypotension and anemia, underwent EGD that did not reveal bleed source, it was concluded the presentation was 2/2 internal hemorrhoids which were ligated. In ED he was hypertensive, labs showed anemia, EKG showed sinus rhythm. CT was negative for acute intracranial pathology, CTA showed 40-60% R carotid and 10- 30% L carotid stenoses. Physical exam was notable for mild weakness of R UE and LE compared to, though patient did not have dysarthria. NIHSS score was 0-1. Exam also revealed R bimalleolar swelling and tenderness to palpation, which the patient attributed to recent physical therapy. TeleNeuro Dr. Butler was consulted and the patient was admitted for management possible CVA. MRI 01/10 showed moderate to prominent chronic microvascular white matter changes however was negative for acute event. Echocardiogram 01/10 showed LVEF 50-55% concerning for HFpEF, normal diastolic function, moderate LA dilation, trace mitral and tricuspid regurgitation, negative bubble study. XR R Ankle showed bimalleolar soft tissue swelling without evidence of fracture. Lipid panel, TSH WNL this admission. Neurologist Dr. Medel was further consulted and agreed patient could be discharged with the following instructions and medications- Please follow up with your primary care physician within 3-5 days upon discharge Please follow up with neurology within 7 days upon discharge Please continue taking atorvastatin and Eliquis Continue all other home medications as prescribed Please come back to the ED if symptoms persist or worsen #TIA #HFpEF #AFIB #HTN #Hypothyroidism #Hx Prostate Ca s/p chemotherapy ----- Plan discussed with attending physician Dr. Stephanie Spears, Medical Student OMSIV Time Spent with Patient Time attestation: Total time spent providing and/or coordinating discharge services: Time spent: Greater than 30 minutes Exam Vital Signs Temp Pulse Resp BP Pulse Ox O2 Del Method 96.8 F 75 24 H 142/82 H 94 L Room Air 01/11/25 08:00 01/11/25 08:00 01/11/25 08:00 01/11/25 08:00 01/11/25 08:00 01/11/25 08:00 Discharge Plan Plan Patient Disposition: Xfer Skilled Nsg Fac (SNF) Care Plan Goals: Please follow up with your primary care physician within 3-5 days upon discharge Please follow up with nuerology within 7 days upon discharge Recommend cardiology follow up outpatient concerning echo and history of A-Fib. Please continue taking atorvastatin and Eliquis. Continue all other home medications as prescribed. Please come back to the ED if symptoms persist or worsen Prescriptions/Referrals Prescriptions/Med Rec: New atorvastatin [Lipitor] 40 mg tablet 40 mg PO QPM Qty: 30 0RF Continued levothyroxine [Levo-T] 112 mcg tablet 112 mcg PO QDAY abiraterone 250 mg tablet 250 mg PO QDAY Rx Instructions: take on empty stomach mirtazapine 15 mg tablet 15 mg PO .at bedtime Patient Comments: TAKE 1 TABLET BY MOUTH ONCE AT BEDTIME Eliquis 5 mg tablet 5 mg PO BID Patient Comments: TAKE 1 TABLET BY MOUTH TWICE A DAY tamsulosin 0.4 mg capsule 0.4 mg PO .at bedtime Patient Comments: TAKE 1 CAPSULE BY MOUTH AT BEDTIME metoprolol succinate 50 mg tablet extended release 24 hr 50 mg PO QDAY Discontinued cephalexin 500 mg tablet 500 mg PO Q6H Referrals: Alexsander Echavarria MD [Primary Care Provider, Family Practice] Jonathan Medel MD [Physician, Neurology] Patient/Caregiver Discharge Instructions Other Discharge Activity Instructions:: Please follow up with your primary care physician within 3-5 days upon discharge Please follow up with nuerology within 7 days upon discharge Recommend cardiology follow up outpatient concerning echo and history of A-Fib. Please continue taking atorvastatin and Eliquis. Continue all other home medications as prescribed. Please come back to the ED if symptoms persist or worsen Education Materials: Symptoms of Stroke, Discharge Instructions for ... Print Language: Bangladeshi Stand Alone Forms: [employer] Award Info., Patient Portal Info Letter Discharge Order Discharge Orders: Discharge (Routine); Ordered 01/11/25 Ordered By: Carloz Houston Quality Discharge Quality Measures VTE prophylaxis Attestestation Attestation I have discussed and was present for the essential components of the discharge history, physical examination, diagnosis, and discharge treatment plan with the resident. I agree with the patient's discharge care as documented by the resident and amended herein by me. Aleks Brown DO. The patient understood all discharge instructions, all questions were answered satisfactorily. The patient was instructed to return to the Emergency Department is symptoms worsened or persisted. Patient was stable, afebrile tolerating p.o. intake and ambulatory at time of discharge to SNF. Patient's Eliquis will be resumed and he will be sent on atorvastatin 40 mg nightly. All questions were answered satisfactorily. Although this document has been carefully reviewed, there may still be some phonetic and other typographical errors. These errors are purely grammatical due to imperfections in the software program and should not be construed in any way to compromise the substance of the patient's medical care during this visit. Time Spent on discharge:
[2025-01-11 13:47] VITALS: BMI 11.0
[2025-01-11 15:15] VITALS: PULSE 78; RESP 20; RESP 96
--- NOTE | 2025-01-11 15:34 | PC.SS ---
Patient is a resident of [facility] and has d/c orders to return today. SS scheduled transport through [facility] for 6p.m. pickling grader. Requested [facility]. Information with reference number submitted on [employer]. Facility aware. Floor nurse updated.
[2025-01-11 16:00] VITALS: BP 143/79; PULSE 85; PULSE 97; RESP 21; TEMP 36.4; O2SAT 95
--- NOTE | 2025-01-11 16:27 | PC.SS ---
SS spoke to Madeleine at [facility] to inform that facility is not answering phone lines and it is going straight to voicemail. Madeleine in admissions states to continue to send patient at scheduled time of 6p.m. They are aware patient is arriving. Packet completed with all documentation including d/c orders /meds. Patient's son aware as well. Floor nurse updated.
--- NOTE | 2025-01-11 18:13 | PD.VPROG1 ---
Telemedicine visit statement This visit was conducted with the use of phone visit was obtained on 01/11/25. Documentation for date of: 01/11/25 Subjective Subjective Interval history: Patient was in telemetry, no overnight events noted. Virtual exam Vital Signs Temp Pulse Resp BP Pulse Ox O2 Del Method 97.6 F 85 21 H 143/79 H 95 Room Air 01/11/25 16:00 01/11/25 16:00 01/11/25 16:00 01/11/25 16:00 01/11/25 16:00 01/11/25 16:00 Objective Labs 01/11/25 04:57 01/11/25 04:57 Labs: Laboratory Results - last 24 hr 01/11/25 04:57 WBC 5.8 RBC 3.50 L Hgb 10.1 L Hct 30.7 L MCV 88 MCH 28.9 MCHC 32.9 RDW Std Deviation 48.3 H Plt Count 363 D Neut % (Auto) 77 Lymph % (Auto) 12 [place] % (Auto) 9 Eos % (Auto) 1 Baso % (Auto) 1 Neut # (Auto) 4.4 Lymph # (Auto) 0.7 L [place] # (Auto) 0.5 Eos # (Auto) 0.1 Baso # (Auto) 0.0 Immature Gran # (Auto) 0.06 H Absolute Nucleated RBC 0.00 Immature Gran % 1 H Nucleated RBC % 0 Sodium 145 Potassium 3.5 D Chloride 105 Carbon Dioxide 27.7 Anion Gap 12 BUN 7 L Creatinine 0.6 Estim Creat Clear Calc 130.3 eGFR > 60 BUN/Creatinine Ratio 12 Glucose 117 H Calculated Osmolality 287 Calcium 9.5 Corrected Calcium 9.7 Phosphorus 3.9 Magnesium 1.9 Total Bilirubin 0.9 AST 19 ALT 19 Alkaline Phosphatase 77 Total Protein 6.8 Albumin 3.7 Globulin 3.1 Albumin/Globulin Ratio 1.2 Triglycerides 98 Cholesterol 158 LDL Cholesterol, Calc 107 HDL Cholesterol 31 L Cholesterol/HDL Ratio 5.1 TSH 3.78 D Assessment & Plan Problem List (1) Right sided weakness: Status: Resolved Assessment and plan: Reassurance given regarding the negative MRI brain for acute infarction. Continue with Eliquis and statin Stable for DC home and will see him 2 weeks. (2) History of atrial fibrillation: Status: Chronic Assessment and plan: continue with rate control and resume Eliquis (3) History of GI bleed: Status: Acute Assessment and plan: resolved by ligation of the hemorrhoids (4) Hypertension: Status: Chronic Assessment and plan: continue with aggressive BP control
--- NOTE | 2025-01-11 18:26 | PC.NURSE ---
Report given to nurse Burns from [facility]. Discharge instructions also sent with ambulance personnel
--- NOTE | 2025-01-11 18:26 | PC.NURSE ---
Report given to nurse Burns from [facility]. Discharge instructions also sent with ambulance personnel
== END 2025-01-11 18:26 | disposition skilled nursing facility (03) | DRG 69 ==
LOC: SERX 13:39 → SERHOLD 14:52 → S2NX 18:50
PROVIDERS: Admitting Provider Student in an Organized Health Care Education/Training Program; Emergency Provider Family Medicine; PCP Family Medicine; Visit Provider Student in an Organized Health Care Education/Training Program
DX: G45.9 Transient cerebral ischemic attack, unspecified (principal); I50.30 Unspecified diastolic (congestive) heart failure; I48.91 Unspecified atrial fibrillation; I11.0 Hypertensive heart disease with heart failure; E03.9 Hypothyroidism, unspecified; R29.810 Facial weakness; R47.1 Dysarthria and anarthria; Z85.46 Personal history of malignant neoplasm of prostate; Z79.01 Long term (current) use of anticoagulants; Z79.899 Other long term (current) drug therapy; Z87.891 Personal history of nicotine dependence; Z92.21 Personal history of antineoplastic chemotherapy; Z99.3 Dependence on wheelchair
CPT/HCPCS: 36415; 70450; 70496; 70498; 70544; 73600; 80053; 80061; 80307; 80320; 81001; 83735; 83880; 84100; 84443; 84484; 85025; 85610; 85730; 87081; 87086; 92610; 93005; 93306; 93880; 96361; 96372; 96374; 97162; 99285; A4649; J1644; J3490; J7030; Q9967; A9270; G0480; J1920